=== PATIENT | male | born 1950 | race Caucasian/White ===

== ENCOUNTER 2017-04-13 15:51 | Emergency (ER) | payer OTHER ==
[2017-04-13 15:55] VITALS: BP 110/69; BMI 38.8
--- NOTE | 2017-04-13 16:32 | DR.ABDMALE ---
HPI - Time seen Time seen: 16:20 - PCP Primary Care Physician: VIVIAN CHANCE - HPI comment HPI Comment: KNOWN DIABETIC ITH ACUTE ON CHRONIC ABDOMIAL PAIN WITH NAUSEA . 3 WEEKS HISTORY OF MELENA STOOLS. PATIENT IS GETTING WEAK. NO FEVER OR DYSURIA. - Complaint Chief Complaint Doctors Comments: ABDOMINAL PAIN, GI BLEEDING, WEAKNESS AND HEADACHE. Chief Complaint:: PT. C/O BLEEDING STOMACH ULCER AND SAYS THAT HE HAS BEEN PASSING BLOOD IN HIS STOOL FOR ABOUT 3 WEEKS WHICH HAS WORSENED WITHIN THE PAST WEEK. PT. IS ALSO VERY WEAK. - Reviewed Nurses Notes Review: Yes - Mode of arrival Mode of Arrival: Ambulatory - Timing Onset of Chief Complaint: 03/23/17 Came on: Gradually - Duration Duration: Intermittent Duration: Weeks - Severity Severity: Moderate - Quality Quality: Cramping, Sharp - Context Onset: Gradually History of: Abdominal surgery (CHOLECYSTECTOMY), Urolithiasis - Modifying factors Worsening Factors: Nothing Improving Factors: Nothing - Associated signs and symptoms Associated Signs and Symptoms: Nausea, Melena PMH - PMH Past Medical History: Yes Past Medical History: Alzheimers, Diabetes, Hypertension, Kidney Stones Past Medical History Comment: STOMACH ULCER Past Surgical History: Yes Surgical History: Cholecystectomy, Lithotripsy, Other Past Surgical History Comment: BACK - Family History History of Family Medical Conditions: Yes Family Medical History: Diabetes Mellitus, Cancer, Hypertension - Social History Does patient currently use any type of tobacco product: No Have you used tobacco products in the last 12 months: No Type of Tobacco Use: None Does any household member use tobacco: No Alcohol Use: None Do you use any recreational Drugs:: No Lives With: Spouse Lives Where: Home - infectious screening In the last 2 months have you had wt loss of >10#?: NO Have you had fever, night sweats or hemotysis?: No Have you traveled outside the country in the last 6 months?: No Isolation: Standard ROS - Review of Systems Constitutional: Weakness, Fatigue. negative: Chills, Fever Eyes: No Symptoms Reported ENTM: No Symptoms Reported Respiratoy: No Symptoms Reported. negative: Productive Cough, Short of Breath, Wheezing Cardiovascular: Chest Pain Gastrointestinal/Abdominal: Abdominal Pain, Nausea, Other (GI BLEEDING) Genitourinary: Bleeding. negative: Dysuria, Frequency Neurological: Headache, Weakness, Dizziness Musculoskeletal: Muscle Pain Integumentary: No Symptoms Reported Hematologic/Lymphatic: Easy Bruising Endocrine: No Symptoms Reported All Other Systems: Reviewed and Negative PE - Vital Signs Vital Signs: Temp Pulse Resp BP Pulse Ox 04/13/17 15:52 97.5 F L 74 22 110/69 96 02/26/16 12:10 127/84 - General Limitations: No Limitations General Appearance: Alert - Head Head Exam: Normal Inspection - Eyes Eye exam: Normal Appearance - ENT ENT Exam: Normal External Ear Exam - Neck Neck Exam: Normal Inspection - Chest Chest Inspection: Normal Inspection - Respiratory Respiratory Exam: Normal Lung Sounds Bilat Respiratory Exam: Bilateral Clear to Auscultation - Cardiovascular Cardiovascular Exam: Regular Rate, Normal Rhythm, Irregular Rhythm - Abdominal Exam Abdominal Exam: Normal Bowel Sounds, Soft, Tenderness Abdominal Tenderness: Diffuse, Moderate - Rectal Rectal Exam: Deferred - Back Back Exam: Paraspinal Tenderness - Extremeties Extremities Exam: Normal Inspection. negative: Edema, Calf Tenderness - Exam: Male: Deferred - Neurologic Neurological Exam: Alert, Oriented X3 - Psychiatric Psychiatric Exam: Normal Affect, Normal Mood - Skin Skin Exam: Normal Color MDM - Additional Information Obtained From Additional information provided by: Family - Differential Diagnosis Differential Diagnosis: Bowel Obstruction, Diverticular disease, Esophagitis, Gastritus/PUD, Gastroenteritis, Inflammatory BD, Urinary tract infection, Urolithiasis Course - Treatment Treatment: SEE ORDERS. - Education/Counseling Education/Counseling: Patient, Family, Education Educated On: Treatment, Diagnosis, Needs for Follow Up ROR - Labs Reviewed Laboratory Results Reviewed?: Yes Result Diagrams: 04/13/17 16:45 04/13/17 16:45 Laboratory: WBC 4.4 X10^3/uL (3.6-10.0) 04/13/17 16:45 RBC 4.11 X10^6/uL (4.7-6.0) L 04/13/17 16:45 Hgb 11.7 g/dL (13.5-18.0) L 04/13/17 16:45 Hct 34.5 % (42.0-54.0) L 04/13/17 16:45 MCV 84.0 fL (80.0-100.0) 04/13/17 16:45 MCH 28.4 pg (27.0-34.0) 04/13/17 16:45 MCHC 33.8 g/dL (33.0-35.0) 04/13/17 16:45 RDW 13.2 % (11.6-16.5) 04/13/17 16:45 Plt Count 231 X10^3/uL (150.0-450.0) 04/13/17 16:45 MPV 7.8 fL (7.4-11.0) 04/13/17 16:45 Neut % 74.1 % (42.0-75.0) 04/13/17 16:45 Lymph % 15.0 % (21.0-51.0) L 04/13/17 16:45 [place] % 7.1 % (0.0-13.0) 04/13/17 16:45 Eos % 2.9 % (0.9-2.9) 04/13/17 16:45 Baso % 0.9 % (0.2-1.0) 04/13/17 16:45 Neut # 3.3 x10^3/uL (2.2-4.8) 04/13/17 16:45 Lymph # 0.7 X10^3/uL (1.3-2.9) L 04/13/17 16:45 [place] # 0.3 x10^3/uL (0.3-0.8) 04/13/17 16:45 Eos # 0.1 x10^3/uL (0.0-0.2) 04/13/17 16:45 Baso # 0.0 X10^3/uL (0.0-0.1) 04/13/17 16:45 Absolute Nucleated RBC 0.0 /100WBC 04/13/17 16:45 Sodium 138 mmol/L (136-145) 04/13/17 16:45 Corrected Sodium TNP 04/13/17 16:45 Potassium 3.6 mmol/L (3.5-5.1) 04/13/17 16:45 Chloride 104 mmol/L (98-107) 04/13/17 16:45 Carbon Dioxide 23.9 mmol/L (21-32) 04/13/17 16:45 BUN 18 mg/dL (7-18) 04/13/17 16:45 Creatinine 1.88 mg/dL (0.70-1.30) H 04/13/17 16:45 Est GFR (MDRD) Af Amer 46 (>60) L 04/13/17 16:45 Est GFR (MDRD) Non-Af 38 (>60) L 04/13/17 16:45 Glucose 84 mg/dL (65-99) 04/13/17 16:45 Calcium 8.6 mg/dL (8.5-10.1) 04/13/17 16:45 Corrected Calcium 9.2 mg/dL (8.5-10.1) 04/13/17 16:45 Total Bilirubin 0.60 mg/dL (0.2-1.0) 04/13/17 16:45 AST 44 Units/L (15-37) H 04/13/17 16:45 ALT 29 Units/L (12-78) 04/13/17 16:45 Alkaline Phosphatase 47 Units/L (46-116) 04/13/17 16:45 Total Protein 6.8 g/dL (6.4-8.2) 04/13/17 16:45 Albumin 3.3 g/dL (3.4-5.0) L 04/13/17 16:45 Globulin 3.5 g/dL (2.5-4.5) 04/13/17 16:45 Albumin/Globulin Ratio 0.9 Ratio (1.1-2.1) L 04/13/17 16:45 Amylase 65 Units/L (25-115) 04/13/17 16:45 Lipase 245 Units/L (73-393) 04/13/17 16:45 Stool Description Fob tube 04/13/17 16:48 Stl Occult Blood (IFOB) Negative (NEGATIVE) 04/13/17 16:48 - XRAY XRAY Interpreted by: Radiologist XRAY Findings: REPORT DISCUSS WITH PATIENT AND FAMILY. - Diagnosis Discharge Problem: Abdominal pain Qualifiers: Abdominal location: generalized Qualified Code(s): R10.84 - Generalized abdominal pain GI bleeding Qualifiers: GI bleed type/associated pathology: melena Qualified Code(s): K92.1 - Melena Back pain Qualifiers: Back pain location: low back pain Chronicity: acute Back pain laterality: bilateral Sciatica presence: with sciatica - Discharge Plan Disposition: HOME, SELF-CARE Condition: Stable Prescriptions: Acetaminophen with Codeine [Tylenol/Codeine #3 300-30 mg] 1 tab PO Q6H PRN #15 tab PRN Reason: Pain Gi Cocktail [LEVSIN/Maalox/Lidoc Visc (GI COCKTAIL) *] 30 ml PO QID #240 ml - Follow ups/Referrals Follow ups/Referrals: MANI DELAROSA [Primary Care Provider] - 3 days - Instructions Instructions: Abdominal Pain, Adult, [id number], Gastrointestinal Bleeding, [id number], Back Pain, Adult, [id number] Additional Instructions: RETURN TO ED IF WORSE.
[2017-04-13] MEDS ORDERED: NS 1000 ML 1,000 ML ONE (16:43)
[2017-04-13 16:51] LABS: BASOPHILS % (AUTO) 0.9 % (0.2-1.0); EOSINOPHILS # (AUTO) 0.1 x10^3/uL (0.0-0.2); EOSINOPHILS % (AUTO) 2.9 % (0.9-2.9); HEMATOCRIT 34.5 % (42.0-54.0); HEMOGLOBIN 11.7 g/dL (13.5-18.0); LYMPHOCYTES # (AUTO) 0.7 X10^3/uL (1.3-2.9); MEAN CORPUSCULAR HEMOGLOBIN 28.4 pg (27.0-34.0); MEAN CORPUSCULAR HGB CONC 33.8 g/dL (33.0-35.0); MEAN PLATELET VOLUME 7.8 fL (7.4-11.0); MONOCYTES # (AUTO) 0.3 x10^3/uL (0.3-0.8); MONOCYTES % (AUTO) 7.1 % (0.0-13.0); NEUTROPHILS # (AUTO) 3.3 x10^3/uL (2.2-4.8); NEUTROPHILS % (AUTO) 74.1 % (42.0-75.0); PLATELET COUNT 231 X10^3/uL (150.0-450.0); RED BLOOD COUNT 4.11 X10^6/uL (4.7-6.0); RED CELL DISTRIBUTION WIDTH 13.2 % (11.6-16.5); WHITE BLOOD COUNT 4.4 X10^3/uL (3.6-10.0)
[2017-04-13] MEDS ORDERED: NS 1000 ML 1,000 ML IV SCH (17:00)
[2017-04-13 17:02] LABS: ALANINE AMINOTRANSFERASE 29 Units/L (12-78); ALBUMIN 3.3 g/dL (3.4-5.0); ALKALINE PHOSPHATASE 47 Units/L (46-116); AMYLASE 65 Units/L (25-115); ASPARTATE AMINO TRANSFERASE 44 Units/L (15-37); BLOOD UREA NITROGEN 18 mg/dL (7-18); CALCIUM 8.6 mg/dL (8.5-10.1); CARBON DIOXIDE 23.9 mmol/L (21-32); CHLORIDE 104 mmol/L (98-107); COR CA(FOR HYPOALB) 9.2 mg/dL (8.5-10.1); CREATININE 1.88 mg/dL (0.70-1.30); GLUCOSE 84 mg/dL (65-99); LIPASE 245 Units/L (73-393); SODIUM 138 mmol/L (136-145); TOTAL PROTEIN 6.8 g/dL (6.4-8.2); eGFR BLACK RACES 46 (>60); eGFR NON BLACK RACES 38 (>60)
[2017-04-13] MEDS ORDERED: PEPCID 20 MG IV PREMIX* 20 MG/50 ML BAG IV ONE ×2 (18:11)
[2017-04-13] MEDS ORDERED: LEVSIN/MAALOX/LIDOC VISC PO ONE (18:11)
[2017-04-13] MEDS ORDERED: LEVSIN/MAALOX/LIDOC VISC ONE (18:11)
--- NOTE | 2017-04-13 18:13 | RAD ---
HISTORY: Abdominal pain, bleeding ulcer Study: Acute abdominal series Comparison: Chest radiograph 06/16/2012 Findings: The lungs are clear without consolidation, effusion or pneumothorax. The cardiac and mediastinal co ntours are within normal limits. Flat plate and upright evaluation of the abdomen demonstrates a normal bowel gas pattern. No gross f ree intraperitoneal air. No pathological soft tissue mass or calcification can be observed. There a re postsurgical changes of lumbar spine. Cholecystectomy clips are noted. IMPRESSION: 1. No acute cardiopulmonary disease. 2. No evidence of acute abdominal pathology. Reported By:
== END 2017-04-13 19:49 | disposition home or self-care (01) ==
LOC: ER 16:00
DX: K92.1 Melena (principal); R10.84 Generalized abdominal pain; M54.31 Sciatica, right side; M54.32 Sciatica, left side
CPT/HCPCS: 36415; 74022; 80053; 82150; 82270; 83690; 85025; 96365; 96367; 96374; 99283; A4222; S0028

== ENCOUNTER → 2017-07-30 | Outpatient (CLI) | payer OTHER ==
[2017-07-30 13:13] LABS: BASOPHILS % (AUTO) 0.7 % (0.2-1.0); EOSINOPHILS # (AUTO) 0.1 x10^3/uL (0.0-0.2); EOSINOPHILS % (AUTO) 1.2 % (0.9-2.9); HEMATOCRIT 25.8 % (42.0-54.0); HEMOGLOBIN 8.3 g/dL (13.5-18.0); LYMPHOCYTES # (AUTO) 0.7 X10^3/uL (1.3-2.9); LYMPHOCYTES % (AUTO) 9.2 % (21.0-51.0); MEAN CORPUSCULAR HEMOGLOBIN 23.7 pg (27.0-34.0); MEAN CORPUSCULAR VOLUME 73.8 fL (80.0-100.0); MEAN PLATELET VOLUME 7.6 fL (7.4-11.0); MONOCYTES # (AUTO) 0.6 x10^3/uL (0.3-0.8); MONOCYTES % (AUTO) 8.6 % (0.0-13.0); NEUTROPHILS # (AUTO) 5.9 x10^3/uL (2.2-4.8); NEUTROPHILS % (AUTO) 80.3 % (42.0-75.0); PLATELET COUNT 274 X10^3/uL (150.0-450.0); RED BLOOD COUNT 3.49 X10^6/uL (4.7-6.0); RED CELL DISTRIBUTION WIDTH 16.1 % (11.6-16.5); WHITE BLOOD COUNT 7.3 X10^3/uL (3.6-10.0)
[2017-07-30 14:04] LABS: ANISOCYTOSIS SLIGHT; HYPOCHROMASIA SLIGHT; PLATELET MORPHOLOGY COMMENT NORMAL (NORMAL)
== END ==
LOC: LAB 12:49
PROVIDERS: ATTEND Nurse Practitioner Family
DX: D64.89 Other specified anemias (principal)
CPT/HCPCS: 36415; 85025

== ENCOUNTER 2017-08-03 17:46 | Emergency (ER) | payer OTHER ==
[2017-08-03 17:54] VITALS: BP 112/65; BMI 37.5
[2017-08-03] MEDS ORDERED: NS 1000 ML 1,000 ML IV ONE (18:09)
[2017-08-03] MEDS ORDERED: NS 1000 ML 1,000 ML ONE (18:11)
--- NOTE | 2017-08-03 18:17 | DR.GENAD ---
HPI - PCP Primary Care Physician: stefanie esquivel - Complaint/Symptoms Chief Complaint Doctors Comments: Patient presents for checking of his hemoglobin, he is concerned that he might have anemia. He is being followed by Dr Sahu. Chief Complaint:: pt states" i got dizzy today and i think my blood has dropped it was 8.3 last week" - Source History Provided: Patient - Mode of Arrival Mode of Arrival: Ambulatory - Timing Onset of Chief Complaint: 08/03/17 PMH - PMH Past Medical History: Yes Past Medical History: Alzheimers, Diabetes, GERD, Hypertension, Kidney Stones Past Surgical History: Yes Surgical History: Angioplasty/Stents, Cholecystectomy, Lithotripsy, Other - Family History History of Family Medical Conditions: Yes Family Medical History: Diabetes Mellitus, Cancer, Hypertension - Social History Alcohol Use: None Do you use any recreational Drugs:: No Lives With: Family Lives Where: Home - infectious screening In the last 2 months have you had wt loss of >10#?: NO Have you had fever, night sweats or hemotysis?: No Have you traveled outside the country in the last 6 months?: No Isolation: Standard ROS - Review of Systems Eyes: No Symptoms Reported ENTM: No Symptoms Reported Respiratoy: No Symptoms Reported Cardiovascular: No Symptoms Reported Gastrointestinal/Abdominal: No Symptoms Reported Genitourinary: No Symptoms Reported Neurological: No Symptoms Reported Musculoskeletal: No Symptoms Reported Integumentary: No Symptoms Reported Hematologic/Lymphatic: No Symptoms Reported Endocrine: No Symptoms Reported Psychiatric: No Symptoms Reported All Other Systems: Reviewed and Negative PE - Vital Signs Vitals: Temperature 98.4 F Pulse Rate 102 Respiratory Rate 18 Blood Pressure 112/65 O2 Sat by Pulse Oximetry 100 - General Limitations: No Limitations General Appearance: Alert, In No Apparent Distress - Head Head Exam: Normal Inspection, Atraumatic - Eyes Eye exam: Normal Appearance, PERRL, EOMI - ENT ENT Exam: Normal Exam External Ear Exam: Normal External Inspection TM/Canal Exam: Bilateral Normal Nose Exam: Normal Nose Exam Mouth Exam: Normal Inspection Throat Exam: Normal Inspection - Neck Neck Exam: Normal Inspection - Chest Chest Inspection: Normal Inspection - Respiratory Respiratory Exam: Normal Lung Sounds Bilat Respiratory Exam: Bilateral Clear to Auscultation - Cardiovascular Cardiovascular Exam: Regular Rate, Normal Rhythm - Abdominal Exam Abdominal Exam: Normal Inspection Abdominal Tenderness: negative: RUQ, RLQ, LUQ, LLQ, Epigastrium, Suprapubic, Diffuse, Mild, Moderate, Severe, Other - Extremities Extremities Exam: Normal Inspection - Back Back Exam: Normal Inspection - Neurologic Neurological Exam: Alert, Oriented X3, CN II-XII Intact - Psychiatric Psychiatric Exam: Normal Affect - Skin Skin Exam: Warm, Dry, Intact ROR - Labs Reviewed Laboratory Results Reviewed?: Yes (Reviewed previous renal functions elevated BUN/Cr) Result Diagrams: 08/03/17 18:17 08/03/17 18:17 Laboratory: WBC 4.7 X10^3/uL (3.6-10.0) 08/03/17 18:17 RBC 3.32 X10^6/uL (4.7-6.0) L 08/03/17 18:17 Hgb 8.1 g/dL (13.5-18.0) L 08/03/17 18:17 Hct 24.7 % (42.0-54.0) L 08/03/17 18:17 MCV 74.5 fL (80.0-100.0) L 08/03/17 18:17 MCH 24.5 pg (27.0-34.0) L 08/03/17 18:17 MCHC 32.8 g/dL (33.0-35.0) L 08/03/17 18:17 RDW 16.6 % (11.6-16.5) H 08/03/17 18:17 Plt Count 267 X10^3/uL (150.0-450.0) 08/03/17 18:17 Plt Count Comment Adequate (ADEQUATE) 08/03/17 18:17 MPV 7.6 fL (7.4-11.0) 08/03/17 18:17 Neut % 77.8 % (42.0-75.0) H 08/03/17 18:17 Lymph % 10.6 % (21.0-51.0) L 08/03/17 18:17 [place] % 9.0 % (0.0-13.0) 08/03/17 18:17 Eos % 1.9 % (0.9-2.9) 08/03/17 18:17 Baso % 0.7 % (0.2-1.0) 08/03/17 18:17 Neut # 3.6 x10^3/uL (2.2-4.8) 08/03/17 18:17 Lymph # 0.5 X10^3/uL (1.3-2.9) L 08/03/17 18:17 Worth # 0.4 x10^3/uL (0.3-0.8) 08/03/17 18:17 Eos # 0.1 x10^3/uL (0.0-0.2) 08/03/17 18:17 Baso # 0.0 X10^3/uL (0.0-0.1) 08/03/17 18:17 Absolute Nucleated RBC 0.0 /100WBC 08/03/17 18:17 Plt Morphology Comment Normal (NORMAL) 08/03/17 18:17 RBC Morphology Abnormal (NORMAL) 08/03/17 18:17 Hypochromasia Slight A 08/03/17 18:17 Poikilocytosis Slight A 08/03/17 18:17 Anisocytosis Slight A 08/03/17 18:17 Microcytosis Slight A 08/03/17 18:17 Sodium 138 mmol/L (136-145) 08/03/17 18:17 Corrected Sodium 140 mmol/L (136-145) 08/03/17 18:17 Potassium 4.3 mmol/L (3.5-5.1) 08/03/17 18:17 Chloride 104 mmol/L (98-107) 08/03/17 18:17 Carbon Dioxide 24.5 mmol/L (21-32) 08/03/17 18:17 BUN 35 mg/dL (7-18) H 08/03/17 18:17 Creatinine 2.29 mg/dL (0.70-1.30) H 08/03/17 18:17 Est GFR (MDRD) Af Amer 37 (>60) L 08/03/17 18:17 Est GFR (MDRD) Non-Af 31 (>60) L 08/03/17 18:17 Glucose 165 mg/dL (65-99) H 08/03/17 18:17 Calcium 8.4 mg/dL (8.5-10.1) L 08/03/17 18:17 - Diagnosis Discharge Problem: Dehydration, mild, Prerenal azotemia - Discharge Plan Condition: Stable - Follow ups/Referrals Follow ups/Referrals: STEFANIE ESQUIVEL [Primary Care Provider] - 3 days - Instructions
[2017-08-03 18:23] LABS: BASOPHILS % (AUTO) 0.7 % (0.2-1.0); EOSINOPHILS # (AUTO) 0.1 x10^3/uL (0.0-0.2); EOSINOPHILS % (AUTO) 1.9 % (0.9-2.9); HEMATOCRIT 24.7 % (42.0-54.0); HEMOGLOBIN 8.1 g/dL (13.5-18.0); LYMPHOCYTES # (AUTO) 0.5 X10^3/uL (1.3-2.9); LYMPHOCYTES % (AUTO) 10.6 % (21.0-51.0); MEAN CORPUSCULAR HEMOGLOBIN 24.5 pg (27.0-34.0); MEAN CORPUSCULAR HGB CONC 32.8 g/dL (33.0-35.0); MEAN CORPUSCULAR VOLUME 74.5 fL (80.0-100.0); MEAN PLATELET VOLUME 7.6 fL (7.4-11.0); MONOCYTES # (AUTO) 0.4 x10^3/uL (0.3-0.8); NEUTROPHILS # (AUTO) 3.6 x10^3/uL (2.2-4.8); NEUTROPHILS % (AUTO) 77.8 % (42.0-75.0); PLATELET COUNT 267 X10^3/uL (150.0-450.0); RED BLOOD COUNT 3.32 X10^6/uL (4.7-6.0); RED CELL DISTRIBUTION WIDTH 16.6 % (11.6-16.5); WHITE BLOOD COUNT 4.7 X10^3/uL (3.6-10.0)
[2017-08-03 18:32] LABS: CALCIUM 8.4 mg/dL (8.5-10.1); CARBON DIOXIDE 24.5 mmol/L (21-32); CREATININE 2.29 mg/dL (0.70-1.30)
[2017-08-03 18:41] LABS: PLATELET MORPHOLOGY COMMENT NORMAL (NORMAL)
[2017-08-03 18:42] LABS: ANISOCYTOSIS SLIGHT; HYPOCHROMASIA SLIGHT; MICROCYTOSIS SLIGHT; POIKILOCYTOSIS SLIGHT
== END 2017-08-03 19:55 | disposition home or self-care (01) ==
LOC: ER 17:55
DX: E86.0 Dehydration (principal); R79.89 Other specified abnormal findings of blood chemistry
CPT/HCPCS: 36415; 80048; 85025; 96365; 99282; 99283; A4222

== ENCOUNTER → 2017-08-05 | Outpatient (CLI) | payer OTHER ==
[2017-08-03 17:54] VITALS: BP 112/65
[2017-08-05 14:16] LABS: BASOPHILS % (AUTO) 0.8 % (0.2-1.0); EOSINOPHILS # (AUTO) 0.1 x10^3/uL (0.0-0.2); EOSINOPHILS % (AUTO) 2.8 % (0.9-2.9); HEMATOCRIT 24.8 % (42.0-54.0); HEMOGLOBIN 7.9 g/dL (13.5-18.0); LYMPHOCYTES # (AUTO) 0.6 X10^3/uL (1.3-2.9); LYMPHOCYTES % (AUTO) 11.6 % (21.0-51.0); MEAN CORPUSCULAR HEMOGLOBIN 24.2 pg (27.0-34.0); MEAN CORPUSCULAR VOLUME 75.5 fL (80.0-100.0); MEAN PLATELET VOLUME 7.7 fL (7.4-11.0); MONOCYTES # (AUTO) 0.4 x10^3/uL (0.3-0.8); MONOCYTES % (AUTO) 9.2 % (0.0-13.0); NEUTROPHILS # (AUTO) 3.7 x10^3/uL (2.2-4.8); NEUTROPHILS % (AUTO) 75.6 % (42.0-75.0); PLATELET COUNT 241 X10^3/uL (150.0-450.0); RED BLOOD COUNT 3.29 X10^6/uL (4.7-6.0); RED CELL DISTRIBUTION WIDTH 16.8 % (11.6-16.5); WHITE BLOOD COUNT 4.9 X10^3/uL (3.6-10.0)
[2017-08-05 14:25] LABS: ANISOCYTOSIS SLIGHT; HYPOCHROMASIA SLIGHT; PLATELET MORPHOLOGY COMMENT NORMAL (NORMAL)
== END | disposition home or self-care (01) | DRG 812 ==
LOC: LAB 13:46
PROVIDERS: ATTEND Nurse Practitioner Family
DX: D64.89 Other specified anemias (principal); L03.818 Cellulitis of other sites; B02.9 Zoster without complications
CPT/HCPCS: 36415; 85025; 87070; 87075; 87077; 87186

== ENCOUNTER → 2017-08-06 | Outpatient (CLI) | payer OTHER ==
[2017-08-03 17:54] VITALS: BP 112/65
[~2017-08-06] MED LIST: NS 500 ML IV 0 ML IV ONE; NS 500 ML IV 500 ML IV ONE
[2017-08-06 11:34] LABS: HEMATOCRIT 25.2 % (42.0-54.0); HEMOGLOBIN 8.1 g/dL (13.5-18.0)
== END ==
LOC: LAB 10:50
PROVIDERS: ATTEND Nurse Practitioner Family
DX: D64.89 Other specified anemias (principal)
CPT/HCPCS: 36415; 85014; 85018; A4222

== ENCOUNTER → 2017-08-13 | Outpatient (CLI) | payer OTHER ==
[2017-08-06 14:38] VITALS: BP 107/57
[2017-08-13 12:41] LABS: BASOPHILS % (AUTO) 0.7 % (0.2-1.0); EOSINOPHILS # (AUTO) 0.1 x10^3/uL (0.0-0.2); EOSINOPHILS % (AUTO) 2.6 % (0.9-2.9); HEMATOCRIT 31.1 % (42.0-54.0); LYMPHOCYTES # (AUTO) 0.6 X10^3/uL (1.3-2.9); LYMPHOCYTES % (AUTO) 12.2 % (21.0-51.0); MEAN CORPUSCULAR HEMOGLOBIN 25.3 pg (27.0-34.0); MEAN PLATELET VOLUME 7.7 fL (7.4-11.0); MONOCYTES # (AUTO) 0.4 x10^3/uL (0.3-0.8); MONOCYTES % (AUTO) 8.1 % (0.0-13.0); NEUTROPHILS # (AUTO) 3.6 x10^3/uL (2.2-4.8); NEUTROPHILS % (AUTO) 76.4 % (42.0-75.0); PLATELET COUNT 243 X10^3/uL (150.0-450.0); RED BLOOD COUNT 3.94 X10^6/uL (4.7-6.0); RED CELL DISTRIBUTION WIDTH 23.9 % (11.6-16.5); WHITE BLOOD COUNT 4.8 X10^3/uL (3.6-10.0)
[2017-08-13 13:01] LABS: ANISOCYTOSIS 2+; PLATELET MORPHOLOGY COMMENT NORMAL (NORMAL)
== END ==
LOC: LAB 12:06
DX: D64.89 Other specified anemias (principal)
CPT/HCPCS: 36415; 85025

== ENCOUNTER 2017-08-27 09:23 | Day surgery (SDC) | payer OTHER ==
[2017-08-27] MEDS ORDERED: D5 LR 1000 ML 1,000 ML IV ONE (09:36)
[2017-08-27] MEDS ORDERED: DIPRIVAN VIAL 20 ML ONE (11:20)
[2017-08-27] MEDS ORDERED: ROBINUL ONE (11:26)
[2017-08-27] MEDS ORDERED: EPHEDRINE SULFATE INJ ONE (11:27)
[2017-08-27 12:22] VITALS: BP 102/60
== END 2017-08-27 12:07 | disposition home or self-care (01) ==
LOC: SURG1 09:23
PROVIDERS: ATTEND Internal Medicine Gastroenterology
PROC: 0DBM8ZX Excision of Descending Colon, Via Natural or Artificial Opening Endoscopic, Diagnostic (ICD-10-PCS; principal; 2017-08-27 12:45)
PROC: 0DBK8ZX Excision of Ascending Colon, Via Natural or Artificial Opening Endoscopic, Diagnostic (ICD-10-PCS; principal; 2017-08-27 12:45)
PROC: 0DJD8ZZ Inspection of Lower Intestinal Tract, Via Natural or Artificial Opening Endoscopic (ICD-10-PCS; principal; 2017-08-27 12:45)
PROC: 0DBH8ZX Excision of Cecum, Via Natural or Artificial Opening Endoscopic, Diagnostic (ICD-10-PCS; principal; 2017-08-27 12:45)
DX: Z12.11 Encounter for screening for malignant neoplasm of colon (principal); D50.8 Other iron deficiency anemias; R19.4 Change in bowel habit; K57.30 Diverticulosis of large intestine without perforation or abscess without bleeding; K64.0 First degree hemorrhoids; K63.5 Polyp of colon; D12.0 Benign neoplasm of cecum; D12.2 Benign neoplasm of ascending colon; D12.4 Benign neoplasm of descending colon
CPT/HCPCS: A4217; J3490; J7120

== ENCOUNTER 2017-09-24 09:05 | Day surgery (SDC) | payer OTHER ==
[2017-09-24] MEDS ORDERED: D5 LR 1000 ML 1,000 ML IV ONE (09:14)
[2017-09-24 09:44] LABS: BASOPHILS # (AUTO) 0.1 X10^3/uL (0.0-0.1); BASOPHILS % (AUTO) 0.7 % (0.2-1.0); EOSINOPHILS # (AUTO) 0.1 x10^3/uL (0.0-0.2); EOSINOPHILS % (AUTO) 1.1 % (0.9-2.9); HEMATOCRIT 32.7 % (42.0-54.0); LYMPHOCYTES # (AUTO) 0.8 X10^3/uL (1.3-2.9); LYMPHOCYTES % (AUTO) 10.7 % (21.0-51.0); MEAN CORPUSCULAR HEMOGLOBIN 26.8 pg (27.0-34.0); MEAN CORPUSCULAR HGB CONC 33.3 g/dL (33.0-35.0); MEAN CORPUSCULAR VOLUME 80.3 fL (80.0-100.0); MEAN PLATELET VOLUME 7.8 fL (7.4-11.0); MONOCYTES # (AUTO) 0.6 x10^3/uL (0.3-0.8); MONOCYTES % (AUTO) 7.9 % (0.0-13.0); NEUTROPHILS # (AUTO) 6.1 x10^3/uL (2.2-4.8); NEUTROPHILS % (AUTO) 79.6 % (42.0-75.0); PLATELET COUNT 257 X10^3/uL (150.0-450.0); RED BLOOD COUNT 4.07 X10^6/uL (4.7-6.0); RED CELL DISTRIBUTION WIDTH 19.5 % (11.6-16.5); WHITE BLOOD COUNT 7.6 X10^3/uL (3.6-10.0)
[2017-09-24 09:46] LABS: HEMOGLOBIN 10.9 g/dL (13.5-18.0)
[2017-09-24] MEDS ORDERED: DIPRIVAN VIAL 20 ML ONE (10:02)
[2017-09-24 11:35] VITALS: BP 112/52
== END 2017-09-24 10:45 | disposition home or self-care (01) ==
LOC: SURG1 09:05
PROVIDERS: ATTEND Internal Medicine Gastroenterology
PROC: 0DB68ZX Excision of Stomach, Via Natural or Artificial Opening Endoscopic, Diagnostic (ICD-10-PCS; principal; 2017-09-24 08:15)
PROC: 0DB88ZX Excision of Small Intestine, Via Natural or Artificial Opening Endoscopic, Diagnostic (ICD-10-PCS; principal; 2017-09-24 08:15)
PROC: 0DJ08ZZ Inspection of Upper Intestinal Tract, Via Natural or Artificial Opening Endoscopic (ICD-10-PCS; principal; 2017-09-24 08:15)
DX: D50.8 Other iron deficiency anemias (principal); R71.0 Precipitous drop in hematocrit; R10.13 Epigastric pain; K21.9 Gastro-esophageal reflux disease without esophagitis; K25.9 Gastric ulcer, unspecified as acute or chronic, without hemorrhage or perforation; K31.89 Other diseases of stomach and duodenum; K29.60 Other gastritis without bleeding; K20.8 Other esophagitis
CPT/HCPCS: 36415; 82947; 85025; A4217; J3490; J7120

== ENCOUNTER 2017-09-25 07:28 | Emergency (ER) | payer OTHER ==
[2017-09-25] MEDS ORDERED: D50W ABBOJECT SYR IV ONE (07:37)
[2017-09-25] MEDS ORDERED: D50W ABBOJECT SYR ONE (07:43)
--- NOTE | 2017-09-25 07:51 | DR.GENAD ---
HPI - Complaint/Symptoms Chief Complaint Doctors Comments: Patient presented to the ED via EMS because of AMS. He began to talk in a repetative manner of any single "catch" word" that you mention. If you say his blood sugar is low, he repeats that sentence or phrase repetatively. He has history of trauma or recent infection. His blood glucose is 44mg/dl. He was given D50. Patient is very restless. <KEARA WEBBER - Last Filed: 09/25/17 08:06> PMH - PMH Past Medical History: Alzheimers, Diabetes, GERD, Hypertension, Kidney Stones Past Surgical History: Yes Surgical History: Angioplasty/Stents, Cholecystectomy, Lithotripsy, Other - Family History Family Medical History: Diabetes Mellitus, Cancer, Hypertension - Social History Do you use any recreational Drugs:: No <KEARA WEBBER - Last Filed: 09/25/17 08:06> ROS - Review of Systems Eyes: No Symptoms Reported ENTM: No Symptoms Reported Respiratoy: No Symptoms Reported Cardiovascular: No Symptoms Reported. negative: Chest Pain Gastrointestinal/Abdominal: No Symptoms Reported Genitourinary: No Symptoms Reported Neurological: Other (hyper excitable) Musculoskeletal: negative: No Symptoms Reported, See HPI, Back Pain, Gout, Joint Pain, Joint Swelling, Muscle Pain, Muscle Stiffness, Neck Pain, Right, Left, Neck, Chest wall, Rib(s), Back, Shoulder, Arm, Elbow, Forearm, Wrist, Hand , Pelvis, Hip, Leg, Knee, Ankle, Foot, Other Integumentary: No Symptoms Reported Hematologic/Lymphatic: No Symptoms Reported Endocrine: No Symptoms Reported Psychiatric: No Symptoms Reported All Other Systems: Reviewed and Negative <AKBARSARAH - Last Filed: 09/25/17 08:06> PE - General Limitations: Altered Mental Status General Appearance: Anxious - Head Head Exam: Normal Inspection, Atraumatic - Eyes Eye exam: Normal Appearance, PERRL, EOMI - ENT ENT Exam: Normal Exam External Ear Exam: Normal External Inspection TM/Canal Exam: Bilateral Normal Nose Exam: Normal Nose Exam Mouth Exam: Normal Inspection Throat Exam: Normal Inspection - Neck Neck Exam: Normal Inspection, Full ROM - Chest Chest Inspection: Normal Inspection - Respiratory Respiratory Exam: Normal Lung Sounds Bilat Respiratory Exam: Bilateral Clear to Auscultation - Cardiovascular Cardiovascular Exam: Regular Rate, Normal Rhythm - Abdominal Exam Abdominal Exam: Normal Inspection, Normal Bowel Sounds Abdominal Tenderness: negative: RUQ, RLQ, LUQ, LLQ, Epigastrium, Suprapubic, Diffuse, Mild, Moderate, Severe, Other - Extremities Extremities Exam: Normal Inspection, Full ROM - Back Back Exam: Normal Inspection, Full ROM - Neurologic Neurological Exam: Alert, CN II-XII Intact - Psychiatric Psychiatric Exam: Agitated, Anxious <KEARA WEBBER - Last Filed: 09/25/17 08:06> - Vital Signs Vitals: Pulse Rate [Apical] 53 Pulse Rate 62 Respiratory Rate 20 Blood Pressure [Right Arm] 128/61 Blood Pressure 104/55 O2 Sat by Pulse Oximetry 100 MDM - Additional Information Additional Information Obtained From: Family - Differential Diagnosis Differential Diagnosis: HYPOGLYCEMIA, SYNCOPAL EPISODE, AMS <HALLE HILL - Last Filed: 09/27/17 08:35> Course - Treatment Treatment: SEE ORDERS. - Education/Counseling Education/Counseling: Patient, Education Educated On: Diagnosis, Needs for Follow Up <HALLE HILL - Last Filed: 09/27/17 08:35> ROR - Labs Reviewed Laboratory Results Reviewed?: Yes Result Diagrams: 09/25/17 07:50 09/25/17 07:50 - XRAY XRAY Findings: REPORT DISCUSS WITH PATIENT AND HIS FAMILY. - EKG Rhythm: NSR (EKG NOTED) <HALLE HILL - Last Filed: 09/27/17 08:35> - Labs Reviewed Laboratory: WBC 6.0 X10^3/uL (3.6-10.0) 09/25/17 07:50 RBC 3.79 X10^6/uL (4.7-6.0) L 09/25/17 07:50 Hgb 10.2 g/dL (13.5-18.0) L 09/25/17 07:50 Hct 30.8 % (42.0-54.0) L 09/25/17 07:50 MCV 81.4 fL (80.0-100.0) 09/25/17 07:50 MCH 26.9 pg (27.0-34.0) L 09/25/17 07:50 MCHC 33.0 g/dL (33.0-35.0) 09/25/17 07:50 RDW 19.9 % (11.6-16.5) H 09/25/17 07:50 Plt Count 245 X10^3/uL (150.0-450.0) 09/25/17 07:50 MPV 8.0 fL (7.4-11.0) 09/25/17 07:50 Neut % 77.1 % (42.0-75.0) H 09/25/17 07:50 Lymph % 10.3 % (21.0-51.0) L 09/25/17 07:50 [place] % 8.8 % (0.0-13.0) 09/25/17 07:50 Eos % 3.0 % (0.9-2.9) H 09/25/17 07:50 Baso % 0.8 % (0.2-1.0) 09/25/17 07:50 Neut # 4.6 x10^3/uL (2.2-4.8) 09/25/17 07:50 Lymph # 0.6 X10^3/uL (1.3-2.9) L 09/25/17 07:50 [place] # 0.5 x10^3/uL (0.3-0.8) 09/25/17 07:50 Eos # 0.2 x10^3/uL (0.0-0.2) 09/25/17 07:50 Baso # 0.0 X10^3/uL (0.0-0.1) 09/25/17 07:50 Absolute Nucleated RBC 0.0 /100WBC 09/25/17 07:50 INR Target Range - 09/25/17 07:50 INR 2.92 (0.8-1.3) H 09/25/17 07:50 PTT 43.3 SECONDS (22.9-36.5) H 09/25/17 07:50 PTT Comment - 09/25/17 07:50 Sodium 139 mmol/L (136-145) 09/25/17 07:50 Corrected Sodium TNP 09/25/17 07:50 Potassium 3.3 mmol/L (3.5-5.1) L 09/25/17 07:50 Chloride 103 mmol/L (98-107) 09/25/17 07:50 Carbon Dioxide 26.0 mmol/L (21-32) 09/25/17 07:50 BUN 16 mg/dL (7-18) 09/25/17 07:50 Creatinine 1.91 mg/dL (0.70-1.30) H 09/25/17 07:50 Est GFR (MDRD) Af Amer 46 (>60) L 09/25/17 07:50 Est GFR (MDRD) Non-Af 38 (>60) L 09/25/17 07:50 Glucose 44 mg/dL (65-99) L* 09/25/17 07:50 POC Glucose (mg/dL) 108 mg/dL (65-99) H 09/25/17 09:20 Calcium 8.2 mg/dL (8.5-10.1) L 09/25/17 07:50 Corrected Calcium 9.0 mg/dL (8.5-10.1) 09/25/17 07:50 Magnesium 1.8 mg/dL (1.7-2.9) 09/25/17 07:50 Total Bilirubin 0.90 mg/dL (0.2-1.0) 09/25/17 07:50 AST 32 Units/L (15-37) 09/25/17 07:50 ALT 6 Units/L (12-78) L 09/25/17 07:50 Alkaline Phosphatase 64 Units/L (46-116) 09/25/17 07:50 Ammonia 19 umol/L (11-32) 09/25/17 08:35 Creatine Kinase 20 Units/L (39-308) L 09/25/17 07:50 CK-MB (CK-2) < 1.0 ng/mL (0-4.0) 09/25/17 07:50 CK/CKMB % Calc 5.0 % (<4) 09/25/17 07:50 Troponin I < 0.02 ng/mL (0-1.5) 09/25/17 07:50 Total Protein 7.0 g/dL (6.4-8.2) 09/25/17 07:50 Albumin 3.0 g/dL (3.4-5.0) L 09/25/17 07:50 Globulin 4.0 g/dL (2.5-4.5) 09/25/17 07:50 Albumin/Globulin Ratio 0.8 Ratio (1.1-2.1) L 09/25/17 07:50 TSH 3rd Generation 1.475 uIU/mL (0.358-3.74) 09/25/17 07:50 Specimen Type Clean catch urine 09/25/17 08:32 Urine Color Yellow (YELLOW) 09/25/17 08:32 Urine Appearance Clear (CLEAR) 09/25/17 08:32 Urine pH 6.0 (5.0 - 8.0) 09/25/17 08:32 Ur Specific [place] 1.015 (1.000-1.030) 09/25/17 08:32 Urine Protein 1+ (NEGATIVE) 09/25/17 08:32 Urine Glucose (UA) Negative (NEGATIVE) 09/25/17 08:32 Urine Ketones Negative (NEGATIVE) 09/25/17 08:32 Urine Occult Blood 1+ (NEGATIVE) 09/25/17 08:32 Urine Nitrite Negative (NEGATIVE) 09/25/17 08:32 Urine Bilirubin Negative (NEGATIVE) 09/25/17 08:32 Urine Urobilinogen Normal (NORMAL) 09/25/17 08:32 Ur Leukocyte Esterase Negative (NEGATIVE) 09/25/17 08:32 Urine RBC None seen /HPF (NEGATIVE) 09/25/17 08:32 Urine WBC None seen /HPF (NEGATIVE) 09/25/17 08:32 Ur Squamous Epith Cells Rare /HPF (NEGATIVE) 09/25/17 08:32 Urine Bacteria Negative /HPF (NEGATIVE) 09/25/17 08:32 Ur Culture Indicated? No/not indicated 09/25/17 08:32 Urine Opiates Screen Negative (NEG=<300) 09/25/17 08:32 Urine Methadone Screen Negative (NEG=<300) 09/25/17 08:32 Ur Barbiturates Screen Negative (NEG=<200) 09/25/17 08:32 Ur Phencyclidine Scrn Negative (NEG=<25) 09/25/17 08:32 Ur Amphetamines Screen Negative (NEG=<1000) 09/25/17 08:32 U Benzodiazepines Scrn Negative (NEG=<200) 09/25/17 08:32 Urine Cocaine Screen Negative (NEG=<300) 09/25/17 08:32 U Marijuana (THC) Screen Negative (NEG=<50) 09/25/17 08:32 <KEARA WEBBER - Last Filed: 09/25/17 08:06> <HALLE HILL - Last Filed: 09/27/17 08:35> - Diagnosis Discharge Problem: Hypoglycemia Episode of syncope Qualifiers: Syncope type: unspecified Qualified Code(s): R55 - Syncope and collapse - Discharge Plan Disposition: 01 HOME, SELF-CARE Condition: Stable - Follow ups/Referrals Follow ups/Referrals: MANI DELAROSA [Primary Care Provider] - 3 days - Instructions Instructions: Hypoglycemia, Inaw-iu-Wedc Additional Instructions: RETURN TO ED IF WORSE.
[2017-09-25 07:53] VITALS: BMI 39.1
[2017-09-25 08:08] LABS: BASOPHILS % (AUTO) 0.8 % (0.2-1.0); EOSINOPHILS # (AUTO) 0.2 x10^3/uL (0.0-0.2); HEMATOCRIT 30.8 % (42.0-54.0); HEMOGLOBIN 10.2 g/dL (13.5-18.0); LYMPHOCYTES # (AUTO) 0.6 X10^3/uL (1.3-2.9); LYMPHOCYTES % (AUTO) 10.3 % (21.0-51.0); MEAN CORPUSCULAR HEMOGLOBIN 26.9 pg (27.0-34.0); MEAN CORPUSCULAR VOLUME 81.4 fL (80.0-100.0); MONOCYTES # (AUTO) 0.5 x10^3/uL (0.3-0.8); MONOCYTES % (AUTO) 8.8 % (0.0-13.0); NEUTROPHILS # (AUTO) 4.6 x10^3/uL (2.2-4.8); NEUTROPHILS % (AUTO) 77.1 % (42.0-75.0); PLATELET COUNT 245 X10^3/uL (150.0-450.0); RED BLOOD COUNT 3.79 X10^6/uL (4.7-6.0); RED CELL DISTRIBUTION WIDTH 19.9 % (11.6-16.5)
--- NOTE | 2017-09-25 08:13 | CT ---
History: Altered mental status Study: CT head without contrast. Sagittal and coronal reformations were provided. Comparison: None Findings: The ventricles and sulci are prominent without mass effect. There is no intracranial hemorr jakob or mass or edema or subdural collection of fluid. There is moderate diffuse patchy periventricul ar white matter low attenuation. The calvarium is intact. The paranasal sinuses are grossly clear. Impression: No acute intracranial disease. Moderate periventricular white-matter small-vessel disease. Reported By:
[2017-09-25 08:25] LABS: ALANINE AMINOTRANSFERASE 6 Units/L (12-78); ALKALINE PHOSPHATASE 64 Units/L (46-116); ASPARTATE AMINO TRANSFERASE 32 Units/L (15-37); BLOOD UREA NITROGEN 16 mg/dL (7-18); CALCIUM 8.2 mg/dL (8.5-10.1); CHLORIDE 103 mmol/L (98-107); CREATINE KINASE 20 Units/L (39-308); CREATINE KINASE MB < 1.0 ng/mL (0-4.0); CREATININE 1.91 mg/dL (0.70-1.30); MAGNESIUM 1.8 mg/dL (1.7-2.9); SODIUM 139 mmol/L (136-145); TROPONIN I < 0.02 ng/mL (0-1.5); TSH (3RD GENERATION) 1.475 uIU/mL (0.358-3.74); eGFR BLACK RACES 46 (>60); eGFR NON BLACK RACES 38 (>60)
[2017-09-25 09:18] LABS: BILIRUBIN,URINE NEGATIVE (NEGATIVE); BLOOD/HEMOGLOBIN,URINE 1+ (NEGATIVE); GLUCOSE, URINE NEGATIVE (NEGATIVE); KETONES,URINE NEGATIVE (NEGATIVE); LEUKOCYTE ESTERASE ,URINE NEGATIVE (NEGATIVE); NITRITES,URINE NEGATIVE (NEGATIVE); PROTEIN,URINE 1+ (NEGATIVE); UROBILINOGEN,URINE NORMAL (NORMAL)
[2017-09-25 09:20] LABS: APPEARANCE,URINE CLEAR (CLEAR); COLOR,URINE YELLOW (YELLOW); RBC,URINE NONE SEEN /HPF (NEGATIVE)
[2017-09-25 09:21] LABS: BACTERIA,URINE NEGATIVE /HPF (NEGATIVE); SQUAMOUS EPITHELIAL CELL,UR RARE /HPF (NEGATIVE)
[2017-09-25 10:25] VITALS: BP 128/61
== END 2017-09-25 10:47 | disposition home or self-care (01) ==
LOC: ER 07:34
DX: E16.2 Hypoglycemia, unspecified (principal); R55 Syncope and collapse
CPT/HCPCS: 36415; 70450; 80053; 80307; 81001; 82140; 82550; 82553; 83735; 84443; 84484; 85025; 85610; 85730; 93005; 93010; 96365; 96374; 99283; 99285; A4222; G0434; J3490

== ENCOUNTER → 2017-10-06 | Outpatient (CLI) | payer OTHER ==
[2017-09-25 10:25] VITALS: BP 128/61
[2017-10-06 13:37] LABS: BASOPHILS % (AUTO) 1.2 % (0.2-1.0); EOSINOPHILS # (AUTO) 0.1 x10^3/uL (0.0-0.2); HEMOGLOBIN 8.6 g/dL (13.5-18.0); LYMPHOCYTES # (AUTO) 0.6 X10^3/uL (1.3-2.9); LYMPHOCYTES % (AUTO) 16.1 % (21.0-51.0); MEAN CORPUSCULAR HEMOGLOBIN 26.7 pg (27.0-34.0); MEAN CORPUSCULAR HGB CONC 33.1 g/dL (33.0-35.0); MEAN CORPUSCULAR VOLUME 80.5 fL (80.0-100.0); MEAN PLATELET VOLUME 8.1 fL (7.4-11.0); MONOCYTES # (AUTO) 0.3 x10^3/uL (0.3-0.8); MONOCYTES % (AUTO) 9.1 % (0.0-13.0); NEUTROPHILS # (AUTO) 2.6 x10^3/uL (2.2-4.8); NEUTROPHILS % (AUTO) 70.6 % (42.0-75.0); PLATELET COUNT 195 X10^3/uL (150.0-450.0); RED BLOOD COUNT 3.22 X10^6/uL (4.7-6.0); RED CELL DISTRIBUTION WIDTH 18.6 % (11.6-16.5); WHITE BLOOD COUNT 3.6 X10^3/uL (3.6-10.0)
== END ==
LOC: LAB 12:58
PROVIDERS: ATTEND Internal Medicine Gastroenterology
DX: D64.89 Other specified anemias (principal)
CPT/HCPCS: 36415; 85025

== ENCOUNTER 2017-10-21 15:00 | Emergency (ER) | payer OTHER ==
[2017-10-21 15:07] VITALS: BP 123/56; BMI 37.5
--- NOTE | 2017-10-21 16:16 | DR.GENAD ---
HPI - PCP Primary Care Physician: juan - HPI Comment HPI Comment: WORSE TODAY. NO FEVER. FEELS WEAK. HISTORY ANEMIA. DENIES BLEEDING. - Complaint/Symptoms Chief Complaint Doctors Comments: FELL, INCREASING PAIN ABDOMEN AND CHEST TIMES 5 DAYS. REDNESS LOWER ABDOMINAL WALL WITH DRAINAGE TIMES 2 DAYS Chief Complaint:: patient stated he fell at home 5 days ago and landed on his left side. having left sided rib pain and lower abd pain. - Nurses notes reviewed Nurses Notes Review: Yes - Source History Provided: Patient - Mode of Arrival Mode of Arrival: Ambulatory - Timing Onset of Chief Complaint: 10/17/17 Came on: Suddenly - Duration Duration: Constant Duration: Days - Severity Severity: Moderate PMH - PMH Past Medical History: Yes Past Medical History: Alzheimers, Diabetes, GERD, Hypertension, Kidney Stones Past Surgical History: Yes Surgical History: Angioplasty/Stents, Cholecystectomy, Lithotripsy, Other - Family History History of Family Medical Conditions: Yes Family Medical History: Diabetes Mellitus, Cancer, Hypertension - Social History Does patient currently use any type of tobacco product: No Have you used tobacco products in the last 12 months: No Type of Tobacco Use: None Does any household member use tobacco: Yes Alcohol Use: None Do you use any recreational Drugs:: No Lives With: Family Lives Where: Home - infectious screening In the last 2 months have you had wt loss of >10#?: NO Have you had fever, night sweats or hemotysis?: No Have you traveled outside the country in the last 6 months?: No Isolation: Standard ROS - Review of Systems Constitutional: Weakness, Fatigue. negative: Chills, Fever Eyes: No Symptoms Reported ENTM: negative: Ear Pain, Nose Discharge, Nose Congestion, Throat Pain Respiratoy: Non-Productive Cough, Short of Breath (ON EXERTION.) Cardiovascular: Chest Pain (LOWER LEFT CHEST.) Gastrointestinal/Abdominal: Abdominal Pain, Nausea. negative: Vomiting Genitourinary: No Symptoms Reported Neurological: Weakness. negative: Headache, Dizziness Musculoskeletal: Muscle Pain Integumentary: Change in Color, Wound (LOWER ABDOMINAL WALL.) Hematologic/Lymphatic: Anemia, Easy Bleeding Endocrine: No Symptoms Reported. negative: Flushing All Other Systems: Reviewed and Negative PE - Vital Signs Vitals: Temperature 98.8 F Pulse Rate 55 Respiratory Rate 18 Blood Pressure [Right Arm] 128/61 Blood Pressure 123/56 O2 Sat by Pulse Oximetry 98 - General Limitations: No Limitations General Appearance: Alert - Head Head Exam: Normal Inspection - Eyes Eye exam: Normal Appearance, PERRL, EOMI. negative: Scleral Icterus, Conjunctival Injection - ENT ENT Exam: Normal External Ear Exam External Ear Exam: Normal External Inspection TM/Canal Exam: Bilateral Normal Nose Exam: Normal Nose Exam Mouth Exam: Normal Inspection Throat Exam: Tonsillar Erythema - Neck Neck Exam: Normal Inspection - Chest Chest Inspection: Symmetric Chest Wall Rise - Respiratory Respiratory Exam: Respiratory Distress Respiratory Exam: Bilateral Rhonchi, Upper Rhonchi, Lower Rhonchi - Cardiovascular Cardiovascular Exam: Regular Rate, Normal Rhythm, Normal Heart Sounds - Abdominal Exam Abdominal Exam: Normal Bowel Sounds, Soft, Tenderness Abdominal Tenderness: Diffuse, Moderate - Extremities Extremities Exam: Normal Inspection - Back Back Exam: Paraspinal Tenderness - Neurologic Neurological Exam: Alert, Oriented X3 - Skin Skin Exam: Erythema (LOWER ABDOMINAL WALL ABSCESS WITH CELLULITIS.) MDM - Additional Information Additional Information Obtained From: Family - Differential Diagnosis Differential Diagnosis: ABDOMINAL PAIN, CP, CONTUSION, RIB FRACTURE, ABSCESS/ CELLULITIS ABD WALL. Course - Treatment Treatment: SEE ORDERS. - Education/Counseling Education/Counseling: Patient, Family, Education Educated On: Treatment, Diagnosis, Needs for Follow Up ROR - Labs Reviewed Laboratory Results Reviewed?: Yes Result Diagrams: 10/21/17 16:20 10/21/17 16:20 Laboratory: WBC 3.7 X10^3/uL (3.6-10.0) 10/21/17 16:20 RBC 3.28 X10^6/uL (4.7-6.0) L 10/21/17 16:20 Hgb 8.7 g/dL (13.5-18.0) L 10/21/17 16:20 Hct 26.4 % (42.0-54.0) L 10/21/17 16:20 MCV 80.6 fL (80.0-100.0) 10/21/17 16:20 MCH 26.4 pg (27.0-34.0) L 10/21/17 16:20 MCHC 32.8 g/dL (33.0-35.0) L 10/21/17 16:20 RDW 16.4 % (11.6-16.5) 10/21/17 16:20 Plt Count 153 X10^3/uL (150.0-450.0) 10/21/17 16:20 MPV 8.4 fL (7.4-11.0) 10/21/17 16:20 Neut % 71.4 % (42.0-75.0) 10/21/17 16:20 Lymph % 16.0 % (21.0-51.0) L 10/21/17 16:20 Amelia % 8.7 % (0.0-13.0) 10/21/17 16:20 Eos % 2.9 % (0.9-2.9) 10/21/17 16:20 Baso % 1.0 % (0.2-1.0) 10/21/17 16:20 Neut # 2.6 x10^3/uL (2.2-4.8) 10/21/17 16:20 Lymph # 0.6 X10^3/uL (1.3-2.9) L 10/21/17 16:20 Amelia # 0.3 x10^3/uL (0.3-0.8) 10/21/17 16:20 Eos # 0.1 x10^3/uL (0.0-0.2) 10/21/17 16:20 Baso # 0.0 X10^3/uL (0.0-0.1) 10/21/17 16:20 Absolute Nucleated RBC 0.0 /100WBC 10/21/17 16:20 INR Target Range - 10/21/17 16:20 INR 2.33 (0.8-1.3) H 10/21/17 16:20 PTT 45.4 SECONDS (22.9-36.5) H 10/21/17 16:20 PTT Comment - 10/21/17 16:20 Sodium 141 mmol/L (136-145) 10/21/17 16:20 Corrected Sodium 145 mmol/L (136-145) 10/21/17 16:20 Potassium 4.0 mmol/L (3.5-5.1) 10/21/17 16:20 Chloride 107 mmol/L (98-107) 10/21/17 16:20 Carbon Dioxide 24.2 mmol/L (21-32) 10/21/17 16:20 BUN 35 mg/dL (7-18) H 10/21/17 16:20 Creatinine 2.35 mg/dL (0.70-1.30) H 10/21/17 16:20 Est GFR (MDRD) Af Amer 36 (>60) L 10/21/17 16:20 Est GFR (MDRD) Non-Af 30 (>60) L 10/21/17 16:20 Glucose 246 mg/dL (65-99) H 10/21/17 16:20 Calcium 7.8 mg/dL (8.5-10.1) L 10/21/17 16:20 Corrected Calcium 9.0 mg/dL (8.5-10.1) 10/21/17 16:20 Total Bilirubin 0.80 mg/dL (0.2-1.0) 10/21/17 16:20 AST 48 Units/L (15-37) H 10/21/17 16:20 ALT 16 Units/L (12-78) 10/21/17 16:20 Alkaline Phosphatase 62 Units/L (46-116) 10/21/17 16:20 Total Protein 6.3 g/dL (6.4-8.2) L 10/21/17 16:20 Albumin 2.5 g/dL (3.4-5.0) L 10/21/17 16:20 Globulin 3.8 g/dL (2.5-4.5) 10/21/17 16:20 Albumin/Globulin Ratio 0.7 Ratio (1.1-2.1) L 10/21/17 16:20 - XRAY XRAY Interpreted by: Radiologist XRAY Findings: REPORT DISCUSS WITH PATIENT. - EKG Rhythm: NSR (EKG NOTED) - Diagnosis Discharge Problem: Abdominal wall abscess Contusion, chest wall Qualifiers: Encounter type: initial encounter Laterality: left Qualified Code(s): S20.212A - Contusion of left front wall of thorax, initial encounter Abdominal pain Qualifiers: Abdominal location: generalized Qualified Code(s): R10.84 - Generalized abdominal pain Cellulitis Qualifiers: Site of cellulitis: other site Qualified Code(s): L03.818 - Cellulitis of other sites - Discharge Plan Condition: Stable Prescriptions: Mupirocin Oint [BACTROBAN OINT 2%] 1 applic EXT BID #22 gm Sulfamethoxazole-Trimethoprim [BACTRIM DS TAB 800/160 MG *] 1 tab PO BID #20 tab - Follow ups/Referrals Follow ups/Referrals: MANI DELAROSA [Primary Care Provider] - 3 days - Instructions Instructions: Chest Pain Observation, Musculoskeletal Pain, Abscess, Easy-to- Read, Cellulitis, Adult, [id number] Additional Instructions: RETURN TO ED IF WORSE.
[2017-10-21 16:43] LABS: EOSINOPHILS # (AUTO) 0.1 x10^3/uL (0.0-0.2); EOSINOPHILS % (AUTO) 2.9 % (0.9-2.9); HEMATOCRIT 26.4 % (42.0-54.0); HEMOGLOBIN 8.7 g/dL (13.5-18.0); LYMPHOCYTES # (AUTO) 0.6 X10^3/uL (1.3-2.9); MEAN CORPUSCULAR HEMOGLOBIN 26.4 pg (27.0-34.0); MEAN CORPUSCULAR HGB CONC 32.8 g/dL (33.0-35.0); MEAN CORPUSCULAR VOLUME 80.6 fL (80.0-100.0); MEAN PLATELET VOLUME 8.4 fL (7.4-11.0); MONOCYTES # (AUTO) 0.3 x10^3/uL (0.3-0.8); MONOCYTES % (AUTO) 8.7 % (0.0-13.0); NEUTROPHILS # (AUTO) 2.6 x10^3/uL (2.2-4.8); NEUTROPHILS % (AUTO) 71.4 % (42.0-75.0); PLATELET COUNT 153 X10^3/uL (150.0-450.0); RED BLOOD COUNT 3.28 X10^6/uL (4.7-6.0); RED CELL DISTRIBUTION WIDTH 16.4 % (11.6-16.5); WHITE BLOOD COUNT 3.7 X10^3/uL (3.6-10.0)
[2017-10-21 16:54] LABS: ALBUMIN 2.5 g/dL (3.4-5.0); CALCIUM 7.8 mg/dL (8.5-10.1); CARBON DIOXIDE 24.2 mmol/L (21-32); CREATININE 2.35 mg/dL (0.70-1.30); TOTAL PROTEIN 6.3 g/dL (6.4-8.2)
--- NOTE | 2017-10-21 17:00 | CT ---
CT abdomen and pelvis without contrast Indication: Left-sided abdominal pain after fall recently Comparison: 12/21/2015 Technique: CT images of the abdomen and pelvis were obtained without contrast. Automatic exposure con trol was utilized. Findings: There is skin thickening with underlying fat stranding of the left lower abdominal wall. No large hematoma identified. Bone windows demonstrates previous L4-5 fusion with interbody spacer. No acute skeletal injury identified. Small calcified granulomas are noted within the lung bases. No acut e consolidation or significant pleural effusion. Cardiomegaly. Evaluation is limited without contrast. Previous cholecystectomy is noted. Mild splenomegaly is a new finding compared with the prior study. Borderline cirrhosis is noted. Within noncontrast limitations , the no acute traumatic injury of the liver, gallbladder, stomach, pancreas, duodenum, adrenals, or kidneys identified. There is chronic left renal atrophy. No focal bowel thickening of the lower GI tract identified. No evidence for free air or free fluid. T he urinary bladder, prostate, and rectum are unremarkable. 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 Impression: 1. No evidence for acute traumatic injury within the abdomen or pelvis, within the limitations of a n oncontrast study. Soft tissue injury of the left lower abdominal wall. 2. Borderline cirrhosis with development of mild splenomegaly, which could reflect early findings of portal venous hypertension. 3. Cardiomegaly, left renal atrophy, and other findings as above. Reported By:
[2017-10-21] MEDS ORDERED: BACTRIM DS TAB PO ONE ×2 (17:25→17:55)
[2017-10-21] MEDS ORDERED: BACITRACIN ZINC ONE (18:01)
== END 2017-10-21 18:37 | disposition home or self-care (01) ==
LOC: ER 15:13
DX: L02.211 Cutaneous abscess of abdominal wall (principal); S20.212A Contusion of left front wall of thorax, initial encounter; R10.84 Generalized abdominal pain; L03.818 Cellulitis of other sites; B95.62 Methicillin resistant Staphylococcus aureus infection as the cause of diseases classified elsewhere; I51.7 Cardiomegaly; W19.XXXA Unspecified fall, initial encounter; Y92.009 Unspecified place in unspecified non-institutional (private) residence as the place of occurrence of the external cause
CPT/HCPCS: 36415; 74176; 80053; 85025; 85610; 85730; 87070; 87075; 87077; 87186; 87205; 99283; 99285

== ENCOUNTER 2017-10-23 11:34 | Emergency (ER) | payer OTHER ==
[2017-10-23 11:39] VITALS: BP 108/56; BMI 37.5
--- NOTE | 2017-10-23 11:58 | DR.GENAD ---
HPI - PCP Primary Care Physician: juan - HPI Comment HPI Comment: SEEN 2 DAYS AGO. - Complaint/Symptoms Chief Complaint Doctors Comments: LEFT LOWER RIB AND CHEST PAIN. PERSISTENT FOR FEW DAYS AND GETTING WORSE. Chief Complaint:: pt was seen 2 days ago for the same thing in our er. pt stated he still is hurting - Nurses notes reviewed Nurses Notes Review: Yes - Source History Provided: Patient - Mode of Arrival Mode of Arrival: Ambulatory - Timing Onset of Chief Complaint: 10/21/17 Came on: Suddenly - Duration Duration: Constant Duration: Days - Severity Severity: Moderate PMH - PMH Past Medical History: Yes Past Medical History: Alzheimers, Diabetes, GERD, Hypertension, Kidney Stones Past Surgical History: Yes Surgical History: Angioplasty/Stents, Cholecystectomy, Lithotripsy, Other - Family History History of Family Medical Conditions: Yes Family Medical History: Diabetes Mellitus, Cancer, Hypertension - Social History Does patient currently use any type of tobacco product: No Have you used tobacco products in the last 12 months: No Type of Tobacco Use: None Does any household member use tobacco: No Alcohol Use: None Do you use any recreational Drugs:: No Lives With: Family Lives Where: Home - infectious screening In the last 2 months have you had wt loss of >10#?: NO Have you had fever, night sweats or hemotysis?: No Have you traveled outside the country in the last 6 months?: No Isolation: Standard ROS - Review of Systems Constitutional: Weakness, Fatigue. negative: Chills, Fever Eyes: negative: Eye Pain, Discharge ENTM: No Symptoms Reported Respiratoy: Non-Productive Cough, Short of Breath Cardiovascular: Chest Pain (LEFT LOWER CHEST PAIN, CHEST WALL PAIN) Gastrointestinal/Abdominal: Abdominal Pain Genitourinary: No Symptoms Reported Neurological: Weakness Musculoskeletal: Back Pain, Chest wall, Rib(s) Integumentary: Bruises Hematologic/Lymphatic: Easy Bleeding Endocrine: No Symptoms Reported All Other Systems: Reviewed and Negative PE - Vital Signs Vitals: Temperature 98.7 F Pulse Rate 52 Respiratory Rate 16 Blood Pressure [Right Arm] 128/61 Blood Pressure 108/56 O2 Sat by Pulse Oximetry 100 - General Limitations: No Limitations General Appearance: Alert - Head Head Exam: Normal Inspection - Eyes Eye exam: Normal Appearance - ENT ENT Exam: Normal External Ear Exam External Ear Exam: Normal External Inspection TM/Canal Exam: Bilateral Normal Nose Exam: Normal Nose Exam Mouth Exam: Normal Inspection Throat Exam: Normal Inspection - Neck Neck Exam: Trachea Midline - Chest Chest Inspection: Symmetric Chest Wall Rise, Tenderness (LEFT LOWER CHEST) - Respiratory Respiratory Exam: Respiratory Distress Respiratory Exam: Bilateral Rhonchi, Lower Rhonchi - Cardiovascular Cardiovascular Exam: Regular Rate, Normal Rhythm, Normal Heart Sounds - Abdominal Exam Abdominal Exam: Normal Inspection - Extremities Extremities Exam: Edema (TRACE) - Back Back Exam: Paraspinal Tenderness - Neurologic Neurological Exam: Alert, Oriented X3 - Psychiatric Psychiatric Exam: Normal Affect, Normal Mood - Skin Skin Exam: Erythema MDM - Differential Diagnosis Differential Diagnosis: RIB FRATURE, CONTUSION, SPRAIN LEFT SIDE. Course - Treatment Treatment: SEE ORDERS - Education/Counseling Education/Counseling: Patient, Family, Education Educated On: Diagnosis, Needs for Follow Up ROR - XRAY XRAY Interpreted by: Radiologist XRAY Findings: REPORT DISCUSS WITH PATIENT. - Diagnosis Discharge Problem: Rib fractures Qualifiers: Encounter type: subsequent encounter Rib fracture type: single rib Fracture type: closed Laterality: left Fracture healing: with routine healing Qualified Code(s): S22.32XD - Fracture of one rib, left side, subsequent encounter for fracture with routine healing Contusion of rib on left side Qualifiers: Encounter type: subsequent encounter Qualified Code(s): S20.212D - Contusion of left front wall of thorax, subsequent encounter - Discharge Plan Disposition: 01 HOME, SELF-CARE Condition: Stable - Follow ups/Referrals Follow ups/Referrals: MANI DELAROSA [Primary Care Provider] - 3 days - Instructions Instructions: Rib Contusion, Rib Fracture, [id number] Additional Instructions: RETURN TO ED IF WORSE.
--- NOTE | 2017-10-23 12:53 | CT ---
HISTORY: Chest trauma, left-sided rib pain Study: CT chest without contrast Comparison: None Technique: Axial noncontrast images with coronal and sagittal reformats. Dose reduction procedures we re used with mA/kv adjusted for body size. The examination is limited due to the lack of intravenous contrast which limits the evaluation of the thoracic aorta, visualized solid organs of the upper abdo men, at evaluation for active hemorrhage. Findings: Examination of the mediastinum demonstrates no evidence for mediastinal hematoma. Calcific atheroscle rotic changes present in a nondilated thoracic aorta. Evaluation for traumatic injury of the thoracic aorta is limited due to the lack of intravenous contrast. Coronary artery calcifications are present . The heart is enlarged. A small left pleural effusion is present. Those portions of the upper abdomi nal organs visualized were within normal limits to the limitations of an unenhanced examination. Ther e is a fracture of the left lateral 11th rib. Examination of the lung carey demonstrates no evidence for pneumothorax. There is slight increased parenchymal density in the left lower lobe possibly a sm all contusion. No nodules, masses, areas of consolidation, peribronchial thickening, or bronchiectasi s is identified. Benign calcified granulomas are present on the right. IMPRESSION: Fracture left lateral 11th rib Slight increased parenchymal density inferiorly in the left lower lobe possibly a mild lung contusion Reported By:
== END 2017-10-23 13:30 | disposition home or self-care (01) ==
LOC: ER 11:43
DX: S22.32XD Fracture of one rib, left side, subsequent encounter for fracture with routine healing (principal); S20.212D Contusion of left front wall of thorax, subsequent encounter
CPT/HCPCS: 71250; 99282

== ENCOUNTER → 2017-10-27 | Outpatient (CLI) | payer OTHER ==
[2017-10-23 11:39] VITALS: BP 108/56
[2017-10-27 13:40] LABS: EOSINOPHILS # (AUTO) 0.1 x10^3/uL (0.0-0.2); EOSINOPHILS % (AUTO) 3.8 % (0.9-2.9); HEMATOCRIT 26.4 % (42.0-54.0); HEMOGLOBIN 8.6 g/dL (13.5-18.0); LYMPHOCYTES # (AUTO) 0.5 X10^3/uL (1.3-2.9); LYMPHOCYTES % (AUTO) 14.7 % (21.0-51.0); MEAN CORPUSCULAR HEMOGLOBIN 26.4 pg (27.0-34.0); MEAN CORPUSCULAR HGB CONC 32.7 g/dL (33.0-35.0); MEAN CORPUSCULAR VOLUME 80.8 fL (80.0-100.0); MEAN PLATELET VOLUME 8.6 fL (7.4-11.0); MONOCYTES # (AUTO) 0.3 x10^3/uL (0.3-0.8); MONOCYTES % (AUTO) 8.2 % (0.0-13.0); NEUTROPHILS # (AUTO) 2.7 x10^3/uL (2.2-4.8); NEUTROPHILS % (AUTO) 72.3 % (42.0-75.0); PLATELET COUNT 170 X10^3/uL (150.0-450.0); RED BLOOD COUNT 3.27 X10^6/uL (4.7-6.0); RED CELL DISTRIBUTION WIDTH 16.7 % (11.6-16.5); WHITE BLOOD COUNT 3.7 X10^3/uL (3.6-10.0)
== END ==
LOC: LAB 13:16
PROVIDERS: ATTEND Nurse Practitioner Family
DX: D64.9 Anemia, unspecified (principal)
CPT/HCPCS: 36415; 85025

== ENCOUNTER → 2017-11-03 | Outpatient (CLI) | payer OTHER ==
[2017-10-23 11:39] VITALS: BP 108/56
[2017-11-03 16:03] LABS: BASOPHILS % (AUTO) 0.8 % (0.2-1.0); EOSINOPHILS # (AUTO) 0.1 x10^3/uL (0.0-0.2); EOSINOPHILS % (AUTO) 2.8 % (0.9-2.9); HEMATOCRIT 26.9 % (42.0-54.0); HEMOGLOBIN 8.7 g/dL (13.5-18.0); LYMPHOCYTES # (AUTO) 0.6 X10^3/uL (1.3-2.9); LYMPHOCYTES % (AUTO) 11.8 % (21.0-51.0); MEAN CORPUSCULAR HEMOGLOBIN 26.2 pg (27.0-34.0); MEAN CORPUSCULAR HGB CONC 32.4 g/dL (33.0-35.0); MEAN CORPUSCULAR VOLUME 80.6 fL (80.0-100.0); MEAN PLATELET VOLUME 7.8 fL (7.4-11.0); MONOCYTES # (AUTO) 0.4 x10^3/uL (0.3-0.8); MONOCYTES % (AUTO) 8.5 % (0.0-13.0); NEUTROPHILS # (AUTO) 3.7 x10^3/uL (2.2-4.8); NEUTROPHILS % (AUTO) 76.1 % (42.0-75.0); PLATELET COUNT 215 X10^3/uL (150.0-450.0); RED BLOOD COUNT 3.34 X10^6/uL (4.7-6.0); RED CELL DISTRIBUTION WIDTH 17.3 % (11.6-16.5); WHITE BLOOD COUNT 4.9 X10^3/uL (3.6-10.0)
== END | disposition home or self-care (01) ==
LOC: LAB 15:49
PROVIDERS: ATTEND Nurse Practitioner Family
DX: D75.89 Other specified diseases of blood and blood-forming organs (principal); K92.2 Gastrointestinal hemorrhage, unspecified
CPT/HCPCS: 36415; 85025

== ENCOUNTER → 2017-11-12 | Outpatient (CLI) | payer OTHER ==
[2017-10-23 11:39] VITALS: BP 108/56
[2017-11-12 15:38] LABS: BASOPHILS % (AUTO) 0.8 % (0.2-1.0); EOSINOPHILS # (AUTO) 0.2 x10^3/uL (0.0-0.2); EOSINOPHILS % (AUTO) 3.8 % (0.9-2.9); HEMATOCRIT 26.3 % (42.0-54.0); HEMOGLOBIN 8.7 g/dL (13.5-18.0); LYMPHOCYTES # (AUTO) 0.6 X10^3/uL (1.3-2.9); LYMPHOCYTES % (AUTO) 14.2 % (21.0-51.0); MEAN CORPUSCULAR HEMOGLOBIN 26.2 pg (27.0-34.0); MEAN CORPUSCULAR HGB CONC 33.1 g/dL (33.0-35.0); MEAN CORPUSCULAR VOLUME 79.2 fL (80.0-100.0); MEAN PLATELET VOLUME 7.6 fL (7.4-11.0); MONOCYTES # (AUTO) 0.4 x10^3/uL (0.3-0.8); MONOCYTES % (AUTO) 8.8 % (0.0-13.0); NEUTROPHILS # (AUTO) 3.2 x10^3/uL (2.2-4.8); NEUTROPHILS % (AUTO) 72.4 % (42.0-75.0); PLATELET COUNT 183 X10^3/uL (150.0-450.0); RED BLOOD COUNT 3.32 X10^6/uL (4.7-6.0); RED CELL DISTRIBUTION WIDTH 16.2 % (11.6-16.5); WHITE BLOOD COUNT 4.5 X10^3/uL (3.6-10.0)
== END ==
LOC: LAB 15:20
PROVIDERS: ATTEND Nurse Practitioner Family
DX: K92.2 Gastrointestinal hemorrhage, unspecified (principal); D64.89 Other specified anemias
CPT/HCPCS: 36415; 85025

== ENCOUNTER 2017-11-16 17:37 | Emergency (ER) | payer OTHER ==
[2017-11-16 17:46] VITALS: BMI 37.5
[2017-11-16] MEDS ORDERED: NS 1000 ML 1,000 ML ONE ×2 (17:53→22:36)
--- NOTE | 2017-11-16 18:41 | DR.GENAD ---
HPI - PCP Primary Care Physician: VIVIAN BRIZUELA - HPI Comment HPI Comment: PATIENT IS HAVING CHEST PAIN, HAVE HEALING RIB FRACTURE DUE TO RECENT FALL. - Complaint/Symptoms Chief Complaint Doctors Comments: ELEVATED GLUCOSE AND SLOW PULSE RATE. BP ELEVATED AT HOME BUT LOW IN ED. FEELING DIZZY AND HAVING NEAR SYNCOPAL FEELING. PATIENT TAKES 50MG METOPROLOL DAILY. PATIENT HAVE ANEMIA, HAD BLOOD TRASFUSION FEW WEEKS AGO. NO MELENA, HEMOGLOBIN DECREASING ALREADY. PATIENT HAVE PARISI. Chief Complaint:: PT C/O B/O > 163/136 , PT C/O HAVING INCREASED BS ,AND FEELING DIZZY AND PT C/O THAT HIS MD IS TRYING TO TITRATE HIS MEDS ,,,,, Self Treatment fo Chief Complaint: PT HAS HAD EPISODES OF LOW HR AND THEY HAD TO GIVE HIME SOMETHING TO BRING IT UP ,, ,FAMILY C/O PT WAS WEAK AND HAD TO BE HELPED UP THE STEPS.. - Nurses notes reviewed Nurses Notes Review: Yes - Source History Provided: Patient, Family Member - Mode of Arrival Mode of Arrival: Wheelchair - Timing Onset of Chief Complaint: 11/16/17 Came on: Suddenly - Duration Duration: Constant Duration: Hours - Severity Severity: Moderate PMH - PMH Past Medical History: Yes Past Medical History: Alzheimers, Anemia, Diabetes, GERD, Hypertension, Kidney Stones Past Medical History Comment: AFIB... Past Surgical History: Yes Surgical History: Angioplasty/Stents, Cholecystectomy, Lithotripsy, Other - Family History History of Family Medical Conditions: Yes Family Medical History: Diabetes Mellitus, Cancer, Hypertension - Social History Does patient currently use any type of tobacco product: No Have you used tobacco products in the last 12 months: No Type of Tobacco Use: None Does any household member use tobacco: No Do you use any recreational Drugs:: No Lives With: Family Lives Where: Home - infectious screening In the last 2 months have you had wt loss of >10#?: NO Have you had fever, night sweats or hemotysis?: No Have you traveled outside the country in the last 6 months?: No Isolation: Standard ROS - Review of Systems Constitutional: Weakness, Fatigue, Loss of Appetite. negative: Chills, Fever Eyes: negative: Eye Pain, Discharge ENTM: Nose Discharge, Nose Congestion. negative: Ear Pain, Throat Pain Respiratoy: Non-Productive Cough Cardiovascular: Chest Pain (CHEST WALL PAIN ALSO DUE TO RIB FRACTURE.) Gastrointestinal/Abdominal: negative: Abdominal Pain, Nausea, Vomiting Genitourinary: negative: Discharge, Dysuria, Frequency, Hematuria Neurological: Headache, Tremors, Weakness, Dizziness, Other (PARKINSONS WITH TREMORS) Musculoskeletal: Muscle Pain Integumentary: Change in Color, Other (SKIN ABRSION ON ABDOMENWAS BLEEDING EARLY ON BUT NOT CURRENTLY.) Hematologic/Lymphatic: Anemia, Easy Bleeding, Easy Bruising Endocrine: No Symptoms Reported. negative: Flushing All Other Systems: Reviewed and Negative PE - Vital Signs Vitals: Temperature 97.8 F Pulse Rate [Left Brachial] 49 Pulse Rate 47 Respiratory Rate 16 Blood Pressure [Right Arm] 131/60 Blood Pressure 77/41 O2 Sat by Pulse Oximetry 100 - General Limitations: No Limitations General Appearance: Alert - Head Head Exam: Normal Inspection - Eyes Eye exam: PERRL, EOMI. negative: Scleral Icterus, Conjunctival Injection - ENT ENT Exam: Normal External Ear Exam External Ear Exam: Normal External Inspection TM/Canal Exam: Bilateral Normal Nose Exam: Normal Nose Exam Mouth Exam: Normal Inspection Throat Exam: Normal Inspection - Neck Neck Exam: Trachea Midline - Chest Chest Inspection: Symmetric Chest Wall Rise - Respiratory Respiratory Exam: Respiratory Distress Respiratory Exam: Bilateral Wheezing, Bilateral Rhonchi, Upper Wheezing, Upper Rhonchi, Lower Wheezing, Lower Rhonchi - Cardiovascular Cardiovascular Exam: Bradycardia - Abdominal Exam Abdominal Exam: Normal Bowel Sounds, Soft, Tenderness Abdominal Tenderness: Suprapubic, Mild - Extremities Extremities Exam: Normal Inspection - Back Back Exam: Normal Inspection - Neurologic Neurological Exam: Alert, Oriented X3 - Psychiatric Psychiatric Exam: Normal Affect, Normal Mood - Skin Skin Exam: Normal Color MDM - Additional Information Additional Information Obtained From: Family - Differential Diagnosis Differential Diagnosis: BRADYCARDIA, DIZZINESS, NEAR SYNCOPE, ANEMIA, CHEST PAIN Course - Treatment Treatment: SEE ORDERS. - Education/Counseling Education/Counseling: Patient, Family, Education Educated On: Diagnosis, Needs for Follow Up ROR - Labs Reviewed Laboratory Results Reviewed?: Yes Result Diagrams: 11/16/17 18:00 11/16/17 18:00 Laboratory: WBC 3.1 X10^3/uL (3.6-10.0) L 11/16/17 18:00 RBC 2.69 X10^6/uL (4.7-6.0) L 11/16/17 18:00 Hgb 7.1 g/dL (13.5-18.0) L 11/16/17 18:00 Hct 22.0 % (42.0-54.0) L 11/16/17 18:00 MCV 81.5 fL (80.0-100.0) 11/16/17 18:00 MCH 26.5 pg (27.0-34.0) L 11/16/17 18:00 MCHC 32.6 g/dL (33.0-35.0) L 11/16/17 18:00 RDW 16.9 % (11.6-16.5) H 11/16/17 18:00 Plt Count 134 X10^3/uL (150.0-450.0) L 11/16/17 18: Plt Count Comment Adequate (ADEQUATE) 11/16/17 18: MPV 8.9 fL (7.4-11.0) 11/16/17 18:00 Neut % 65.1 % (42.0-75.0) 11/16/17 18:00 Lymph % 19.0 % (21.0-51.0) L 11/16/17 18:00 [place] % 10.5 % (0.0-13.0) 11/16/17 18:00 Eos % 4.5 % (0.9-2.9) H 11/16/17 18:00 Baso % 0.9 % (0.2-1.0) 11/16/17 18:00 Neut # 2.0 x10^3/uL (2.2-4.8) L 11/16/17 18:00 Lymph # 0.6 X10^3/uL (1.3-2.9) L 11/16/17 18:00 [place] # 0.3 x10^3/uL (0.3-0.8) 11/16/17 18:00 Eos # 0.1 x10^3/uL (0.0-0.2) 11/16/17 18:00 Baso # 0.0 X10^3/uL (0.0-0.1) 11/16/17 18:00 Absolute Nucleated RBC 0.2 /100WBC 11/16/17 18:00 Plt Morphology Comment Normal (NORMAL) 11/16/17 18:00 RBC Morphology Abnormal (NORMAL) 11/16/17 18:00 Hypochromasia Slight A 11/16/17 18:00 Anisocytosis Slight A 11/16/17 18:00 INR Target Range - 11/16/17 18:00 INR 2.61 (0.8-1.3) H 11/16/17 18:00 PTT 43.0 SECONDS (22.9-36.5) H 11/16/17 18:00 PTT Comment - 11/16/17 18:00 Sodium 135 mmol/L (136-145) L 11/16/17 18:00 Corrected Sodium 137 mmol/L (136-145) 11/16/17 18:00 Potassium 4.8 mmol/L (3.5-5.1) 11/16/17 18:00 Chloride 105 mmol/L (98-107) 11/16/17 18:00 Carbon Dioxide 22.9 mmol/L (21-32) 11/16/17 18:00 BUN 62 mg/dL (7-18) H 11/16/17 18:00 Creatinine 3.36 mg/dL (0.70-1.30) H 11/16/17 18:00 Est GFR (MDRD) Af Amer 24 (>60) L 11/16/17 18:00 Est GFR (MDRD) Non-Af 20 (>60) L 11/16/17 18:00 Glucose 195 mg/dL (65-99) H 11/16/17 18:00 Calcium 8.0 mg/dL (8.5-10.1) L 11/16/17 18:00 Corrected Calcium 9.2 mg/dL (8.5-10.1) 11/16/17 18:00 Magnesium 2.1 mg/dL (1.7-2.9) 11/16/17 18:00 Total Bilirubin 0.50 mg/dL (0.2-1.0) 11/16/17 18:00 AST 72 Units/L (15-37) H 11/16/17 18:00 ALT 19 Units/L (12-78) 11/16/17 18:00 Alkaline Phosphatase 127 Units/L (46-116) H 11/16/17 18:00 Creatine Kinase 22 Units/L (39-308) L 11/16/17 18:00 CK-MB (CK-2) < 1.0 ng/mL (0-4.0) 11/16/17 18:00 CK/CKMB % Calc 4.6 % (<4) 11/16/17 18:00 Troponin I < 0.02 ng/mL (0-1.5) 11/16/17 18:00 B-Natriuretic Peptide 122 pg/mL (0-79) H 11/16/17 18:00 Total Protein 5.9 g/dL (6.4-8.2) L 11/16/17 18:00 Albumin 2.5 g/dL (3.4-5.0) L 11/16/17 18:00 Globulin 3.4 g/dL (2.5-4.5) 11/16/17 18:00 Albumin/Globulin Ratio 0.7 Ratio (1.1-2.1) L 11/16/17 18:00 Specimen Type Clean catch urine 11/16/17 20:52 Urine Color Yellow (YELLOW) 11/16/17 20:52 Urine Appearance Hazy (CLEAR) 11/16/17 20:52 Urine pH 5.0 (5.0 - 8.0) 11/16/17 20:52 Ur Specific [place] 1.015 (1.000-1.030) 11/16/17 20:52 Urine Protein 1+ (NEGATIVE) 11/16/17 20:52 Urine Glucose (UA) Negative (NEGATIVE) 11/16/17 20:52 Urine Ketones 1+ (NEGATIVE) 11/16/17 20:52 Urine Occult Blood 3+ (NEGATIVE) 11/16/17 20:52 Urine Nitrite Negative (NEGATIVE) 11/16/17 20:52 Urine Bilirubin Negative (NEGATIVE) 11/16/17 20:52 Urine Urobilinogen Normal (NORMAL) 11/16/17 20:52 Ur Leukocyte Esterase Negative (NEGATIVE) 11/16/17 20:52 Urine RBC 20-25 /HPF (NEGATIVE) 11/16/17 20:52 Urine WBC 0-5 /HPF (NEGATIVE) 11/16/17 20:52 Ur Squamous Epith Cells Negative /HPF (NEGATIVE) 11/16/17 20:52 Urine Bacteria Trace /HPF (NEGATIVE) 11/16/17 20:52 Ur Culture Indicated? No/not indicated 11/16/17 20:52 - XRAY XRAY Interpreted by: Radiologist XRAY Findings: REPORT DISCUSS WITH PATIENT AND FAMILY. - EKG Rhythm: NSR (EKG NOTED.) - Diagnosis Discharge Problem: Bradycardia Anemia Qualifiers: Anemia type: other cause Other causes of anemia: other cause, not classified Qualified Code(s): D64.89 - Other specified anemias Hypotension Qualifiers: Hypotension type: other hypotension type Qualified Code(s): I95.89 - Other hypotension A-fib Qualifiers: Atrial fibrillation type: chronic Qualified Code(s): I48.2 - Chronic atrial fibrillation - Discharge Plan Disposition: [facility]FER [facility] Condition: Stable - Follow ups/Referrals Follow ups/Referrals: NFD,None [Primary Care Provider] - 3 days - Instructions
[2017-11-16 18:45] LABS: BASOPHILS % (AUTO) 0.9 % (0.2-1.0); EOSINOPHILS # (AUTO) 0.1 x10^3/uL (0.0-0.2); EOSINOPHILS % (AUTO) 4.5 % (0.9-2.9); HEMOGLOBIN 7.1 g/dL (13.5-18.0); LYMPHOCYTES # (AUTO) 0.6 X10^3/uL (1.3-2.9); MEAN CORPUSCULAR HEMOGLOBIN 26.5 pg (27.0-34.0); MEAN CORPUSCULAR HGB CONC 32.6 g/dL (33.0-35.0); MEAN CORPUSCULAR VOLUME 81.5 fL (80.0-100.0); MEAN PLATELET VOLUME 8.9 fL (7.4-11.0); MONOCYTES # (AUTO) 0.3 x10^3/uL (0.3-0.8); MONOCYTES % (AUTO) 10.5 % (0.0-13.0); NEUTROPHILS % (AUTO) 65.1 % (42.0-75.0); PLATELET COUNT 134 X10^3/uL (150.0-450.0); RED BLOOD COUNT 2.69 X10^6/uL (4.7-6.0); RED CELL DISTRIBUTION WIDTH 16.9 % (11.6-16.5); WHITE BLOOD COUNT 3.1 X10^3/uL (3.6-10.0)
--- NOTE | 2017-11-16 18:46 | RAD ---
Single view of the chest Indication: Dizziness Findings/conclusion: There is cardiomegaly. No pulmonary edema is seen. Lungs are clear. Reported By:
[2017-11-16 18:48] LABS: BLOOD UREA NITROGEN 62 mg/dL (7-18); CARBON DIOXIDE 22.9 mmol/L (21-32); CHLORIDE 105 mmol/L (98-107); COR NA(FOR HYPERGLY) 137 mmol/L (136-145); CREATININE 3.36 mg/dL (0.70-1.30); SODIUM 135 mmol/L (136-145); TROPONIN I < 0.02 ng/mL (0-1.5); eGFR BLACK RACES 24 (>60); eGFR NON BLACK RACES 20 (>60)
[2017-11-16 18:51] LABS: B-TYPE NATRIURETIC PEPTIDE 122 pg/mL (0-79)
[2017-11-16 18:53] LABS: ALANINE AMINOTRANSFERASE 19 Units/L (12-78); ALBUMIN 2.5 g/dL (3.4-5.0); ALKALINE PHOSPHATASE 127 Units/L (46-116); ASPARTATE AMINO TRANSFERASE 72 Units/L (15-37); CKMB % 4.6 % (<4); COR CA(FOR HYPOALB) 9.2 mg/dL (8.5-10.1); CREATINE KINASE 22 Units/L (39-308); CREATINE KINASE MB < 1.0 ng/mL (0-4.0); MAGNESIUM 2.1 mg/dL (1.7-2.9); TOTAL PROTEIN 5.9 g/dL (6.4-8.2)
[2017-11-16 18:55] LABS: ANISOCYTOSIS SLIGHT; HYPOCHROMASIA SLIGHT; PLATELET MORPHOLOGY COMMENT NORMAL (NORMAL)
[2017-11-16] MEDS ORDERED: NS 1000 ML 1,000 ML IV SCH ×2 (19:00→22:44)
[2017-11-16 21:01] LABS: BILIRUBIN,URINE NEGATIVE (NEGATIVE); BLOOD/HEMOGLOBIN,URINE 3+ (NEGATIVE); GLUCOSE, URINE NEGATIVE (NEGATIVE); KETONES,URINE 1+ (NEGATIVE); LEUKOCYTE ESTERASE ,URINE NEGATIVE (NEGATIVE); NITRITES,URINE NEGATIVE (NEGATIVE); PROTEIN,URINE 1+ (NEGATIVE); UROBILINOGEN,URINE NORMAL (NORMAL)
[2017-11-16 21:05] LABS: APPEARANCE,URINE HAZY (CLEAR); COLOR,URINE YELLOW (YELLOW)
[2017-11-16 21:06] LABS: BACTERIA,URINE TRACE /HPF (NEGATIVE); RBC,URINE 20-25 /HPF (NEGATIVE); SQUAMOUS EPITHELIAL CELL,UR NEGATIVE /HPF (NEGATIVE)
[2017-11-16 22:47] VITALS: BP 131/60
== END 2017-11-16 22:53 | disposition short-term general hospital (02) ==
LOC: ER 17:52
DX: R00.1 Bradycardia, unspecified (principal); D64.89 Other specified anemias; I95.89 Other hypotension; I48.2 Chronic atrial fibrillation; I51.7 Cardiomegaly
CPT/HCPCS: 36415; 71045; 80053; 81001; 82550; 82553; 83735; 83880; 84484; 85025; 85610; 85730; 93005; 93010; 96365; 96367; 99285; A4222

== ENCOUNTER → 2017-12-09 | Outpatient (CLI) | payer OTHER ==
[2017-11-16 22:47] VITALS: BP 131/60
[2017-12-09 17:07] LABS: BASOPHILS % (AUTO) 1.2 % (0.2-1.0); EOSINOPHILS # (AUTO) 0.1 x10^3/uL (0.0-0.2); EOSINOPHILS % (AUTO) 2.6 % (0.9-2.9); HEMATOCRIT 27.3 % (42.0-54.0); LYMPHOCYTES # (AUTO) 0.4 X10^3/uL (1.3-2.9); LYMPHOCYTES % (AUTO) 15.7 % (21.0-51.0); MEAN CORPUSCULAR HEMOGLOBIN 29.8 pg (27.0-34.0); MEAN CORPUSCULAR HGB CONC 32.9 g/dL (33.0-35.0); MEAN CORPUSCULAR VOLUME 90.6 fL (80.0-100.0); MEAN PLATELET VOLUME 7.9 fL (7.4-11.0); MONOCYTES # (AUTO) 0.2 x10^3/uL (0.3-0.8); MONOCYTES % (AUTO) 9.2 % (0.0-13.0); NEUTROPHILS # (AUTO) 1.7 x10^3/uL (2.2-4.8); NEUTROPHILS % (AUTO) 71.3 % (42.0-75.0); PLATELET COUNT 146 X10^3/uL (150.0-450.0); RED BLOOD COUNT 3.01 X10^6/uL (4.7-6.0); RED CELL DISTRIBUTION WIDTH 22.5 % (11.6-16.5); RETICULOCYTE % 4.16 % (0.8-2.2); WHITE BLOOD COUNT 2.4 X10^3/uL (3.6-10.0)
[2017-12-09 17:31] LABS: ALBUMIN 2.4 g/dL (3.4-5.0); CARBON DIOXIDE 21.7 mmol/L (21-32); COR CA(FOR HYPOALB) 9.3 mg/dL (8.5-10.1); CREATININE 1.99 mg/dL (0.70-1.30)
[2017-12-09 17:49] LABS: BASOPHILS % (MANUAL) 1 % (0-1)
[2017-12-09 17:51] LABS: ANISOCYTOSIS 2+; HYPOCHROMASIA SLIGHT; PLATELET MORPHOLOGY COMMENT NORMAL (NORMAL)
== END ==
LOC: LAB 16:23
PROVIDERS: ATTEND Internal Medicine Hematology & Oncology
DX: D64.9 Anemia, unspecified (principal); R19.5 Other fecal abnormalities; Z79.899 Other long term (current) drug therapy
CPT/HCPCS: 36415; 80053; 82270; 82525; 82607; 82728; 82746; 83010; 83540; 83550; 83615; 85025; 85045; 85060

== ENCOUNTER → 2018-01-03 | Outpatient (CLI) | payer OTHER ==
[2018-01-03 14:06] LABS: HEMOGLOBIN A1C 4.6 %
[2018-01-03 14:18] LABS: ALANINE AMINOTRANSFERASE 13 Units/L (12-78); ALBUMIN 2.8 g/dL (3.4-5.0); ALKALINE PHOSPHATASE 109 Units/L (46-116); ASPARTATE AMINO TRANSFERASE 34 Units/L (15-37); BLOOD UREA NITROGEN 25 mg/dL (7-18); CALCIUM 8.1 mg/dL (8.5-10.1); CARBON DIOXIDE 24.2 mmol/L (21-32); CHLORIDE 109 mmol/L (98-107); CHOL/HDL RATIO 3.9 (0.0-5.0); CHOLESTEROL 93 mg/dL (0-200); COR CA(FOR HYPOALB) 9.1 mg/dL (8.5-10.1); CREATININE 1.77 mg/dL (0.70-1.30); HDL CHOLESTEROL 24 mg/dL (40-60); SODIUM 142 mmol/L (136-145); T4 (THYROXINE) 11.2 ug/dL (4.7-13.3); TOTAL PROTEIN 6.4 g/dL (6.4-8.2); TRIGLYCERIDES 78 mg/dL (0-150); TSH (3RD GENERATION) 2.147 uIU/mL (0.358-3.74); eGFR BLACK RACES 50 (>60); eGFR NON BLACK RACES 41 (>60)
[2018-01-03 14:36] LABS: EOSINOPHILS # (AUTO) 0.1 x10^3/uL (0.0-0.2); LYMPHOCYTES # (AUTO) 0.3 X10^3/uL (1.3-2.9); MEAN PLATELET VOLUME 8.5 fL (7.4-11.0); MONOCYTES # (AUTO) 0.2 x10^3/uL (0.3-0.8); NEUTROPHILS # (AUTO) 1.7 x10^3/uL (2.2-4.8); WHITE BLOOD COUNT 2.3 X10^3/uL (3.6-10.0)
[2018-01-03 14:40] LABS: EOSINOPHILS % (AUTO) 3.5 % (0.9-2.9); HEMATOCRIT 28.2 % (42.0-54.0); HEMOGLOBIN 9.6 g/dL (13.5-18.0); LYMPHOCYTES % (AUTO) 14.7 % (21.0-51.0); MEAN CORPUSCULAR HEMOGLOBIN 30.6 pg (27.0-34.0); MEAN CORPUSCULAR HGB CONC 34.2 g/dL (33.0-35.0); MEAN CORPUSCULAR VOLUME 89.7 fL (80.0-100.0); MONOCYTES % (AUTO) 9.8 % (0.0-13.0); PLATELET COUNT 135 X10^3/uL (150.0-450.0); RED BLOOD COUNT 3.15 X10^6/uL (4.7-6.0); RED CELL DISTRIBUTION WIDTH 17.8 % (11.6-16.5); TRANSFERRIN 300 mg/dL (202-364)
[2018-01-03 15:40] LABS: BAND NEUTROPHILS % 4 % (0-10); BASOPHILS % (MANUAL) 1 % (0-1)
[2018-01-03 15:41] LABS: ERYTHROCYTE SEDIMENTATION RATE 15 MM/HOUR (0-15); PLATELET MORPHOLOGY COMMENT NORMAL (NORMAL)
== END ==
LOC: LAB 13:24
PROVIDERS: ATTEND Psychiatry & Neurology Neurology
DX: D64.9 Anemia, unspecified (principal); Z86.79 Personal history of other diseases of the circulatory system; Z12.5 Encounter for screening for malignant neoplasm of prostate; E11.69 Type 2 diabetes mellitus with other specified complication; I48.91 Unspecified atrial fibrillation; M15.9 Polyosteoarthritis, unspecified
CPT/HCPCS: 36415; 80053; 80061; 82607; 82728; 82746; 83036; 84153; 84154; 84436; 84443; 84466; 85025; 85652

== ENCOUNTER → 2018-01-07 | Outpatient (CLI) | payer OTHER | LOC: LAB 12:15 | PROVIDERS: ATTEND Psychiatry & Neurology Neurology | DX: R19.4 Change in bowel habit (principal); R19.5 Other fecal abnormalities | CPT/HCPCS: 82274; 87045; 87338; 87427; 87449; 87493 ==

== ENCOUNTER → 2018-02-11 | Outpatient (CLI) | payer OTHER ==
[2018-02-11 16:18] LABS: IRON 188 ug/dL (50-175); TOTAL IRON BINDING CAPACITY 348 ug/dL (250-450)
== END ==
LOC: LAB 15:09
PROVIDERS: ATTEND Nurse Practitioner Family
DX: D64.9 Anemia, unspecified (principal)
CPT/HCPCS: 36415; 82728; 83540; 83550

== ENCOUNTER 2018-06-04 13:51 | Inpatient (IN) ==
[2018-06-04] MEDS ORDERED: HumuLIN R SC PRN (16:22)
[2018-06-04] MEDS ORDERED: LASIX IVP ONE (16:26)
[2018-06-04] MEDS: DUONEB 0.5 MG/3 MG NEB SCH ×2 (17:05→20:45)
[2018-06-04 17:10] LABS: HEMOGLOBIN 7.2 g/dL (13.5-18.0)
[2018-06-04 17:21] LABS: TSH (3RD GENERATION) 2.742 uIU/mL (0.358-3.74)
[2018-06-04] MEDS ORDERED: SALINE 3% 15 ML NEB TX ONE (17:21)
[2018-06-04] MEDS: MAG-OX TAB PO SCH (18:31)
[2018-06-04] MEDS: VANCOMYCIN HCL PO SCH (21:34)
[2018-06-04] MEDS: PEPCID 20 MG IV PREMIX* 20 MG/50 ML BAG IV SCH (21:35)
[2018-06-05] MEDS ORDERED: NS 500 ML IV 500 ML IV ONE ×2 (00:12→03:32)
[2018-06-05] MEDS: VANCOMYCIN HCL PO SCH ×4 (03:56→20:58)
--- NOTE | 2018-06-05 07:43 | RAD ---
HISTORY: Shortness of breath Study: Single-view chest Comparison: 06/04/2018 Findings: The trachea is midline. The cardiac silhouette is stable in appearance. Hazy density within the low er right lung is concerning for pneumonia. The left lung is clear. The bony thorax is grossly intact . IMPRESSION: 1. Findings concerning for developing pneumonia within the lower right lung. Follow-up is recommende d Reported By:
[2018-06-05 09:04] LABS: BASOPHILS % (AUTO) 0.8 % (0.2-1.0); EOSINOPHILS # (AUTO) 0.2 x10^3/uL (0.0-0.2); EOSINOPHILS % (AUTO) 4.4 % (0.9-2.9); HEMATOCRIT 27.7 % (42.0-54.0); HEMOGLOBIN 9.3 g/dL (13.5-18.0); LYMPHOCYTES # (AUTO) 0.5 X10^3/uL (1.3-2.9); LYMPHOCYTES % (AUTO) 15.8 % (21.0-51.0); MEAN CORPUSCULAR HEMOGLOBIN 29.1 pg (27.0-34.0); MEAN CORPUSCULAR HGB CONC 33.5 g/dL (33.0-35.0); MEAN PLATELET VOLUME 7.7 fL (7.4-11.0); MONOCYTES # (AUTO) 0.4 x10^3/uL (0.3-0.8); MONOCYTES % (AUTO) 10.1 % (0.0-13.0); NEUTROPHILS # (AUTO) 2.4 x10^3/uL (2.2-4.8); NEUTROPHILS % (AUTO) 68.9 % (42.0-75.0); PLATELET COUNT 178 X10^3/uL (150.0-450.0); RED BLOOD COUNT 3.18 X10^6/uL (4.7-6.0); RED CELL DISTRIBUTION WIDTH 15.5 % (11.6-16.5); WHITE BLOOD COUNT 3.5 X10^3/uL (3.6-10.0)
[2018-06-05] MEDS: DUONEB 0.5 MG/3 MG NEB SCH ×4 (09:12→20:27)
[2018-06-05 09:13] LABS: ALBUMIN 2.1 g/dL (3.4-5.0); CALCIUM 7.7 mg/dL (8.5-10.1); CARBON DIOXIDE 23.1 mmol/L (21-32); COR CA(FOR HYPOALB) 9.2 mg/dL (8.5-10.1); CREATININE 1.63 mg/dL (0.70-1.30); MAGNESIUM 1.5 mg/dL (1.7-2.9); TOTAL PROTEIN 5.6 g/dL (6.4-8.2)
[2018-06-05] MEDS ORDERED: VENOFER IV ONE (09:29)
[2018-06-05] MEDS: MAG-OX TAB PO SCH ×2 (09:46→17:34)
[2018-06-05] MEDS: PEPCID 20 MG IV PREMIX* 20 MG/50 ML BAG IV SCH (09:46)
[2018-06-05] MEDS ORDERED: NS 100 ML IV 100 ML with VENOFER 100 MG IV NR ×2 (13:00)
[2018-06-05 13:28] VITALS: BMI 33.5
[2018-06-05] MEDS: ARICEPT TAB 10 MG PO SCH (13:58)
[2018-06-05] MEDS: FOLIC ACID TAB 1 MG PO SCH (13:59)
[2018-06-05] MEDS: PROTONIX TAB 40 MG PO SCH ×2 (13:59→20:55)
[2018-06-05] MEDS: CORDARONE TAB 200 MG PO SCH (13:59)
[2018-06-05] MEDS: PEPCID TAB 20 MG PO SCH ×2 (13:59→20:54)
[2018-06-05] MEDS: HEMOCYTE-PLUS PO SCH ×2 (13:59→21:00)
[2018-06-05] MEDS ORDERED: PATIENT'S HOME MEDICATION (Ferrous Sulfate [Ferrous Sulfate] 1 TAB) PO SCH (14:00)
[2018-06-05] MEDS: SINEMET (PLAIN) 25/250 MG PO SCH ×2 (14:00→21:00)
[2018-06-05] MEDS: ULTRAM PO SCH ×2 (14:00→21:00)
[2018-06-05] MEDS: NEURONTIN CAP 300 MG PO SCH ×2 (14:00→21:00)
[2018-06-05] MEDS ORDERED: NS 100 ML IV 100 ML IV ONE (15:29)
[2018-06-05] MEDS ORDERED: ROBITUSSIN DM PO PRN (16:11)
[2018-06-05 16:42] LABS: HEMATOCRIT 25.5 % (42.0-54.0); HEMOGLOBIN 8.7 g/dL (13.5-18.0)
[2018-06-06] MEDS: VANCOMYCIN HCL PO SCH ×2 (02:27→09:00)
[2018-06-06] MEDS: HEMOCYTE-PLUS PO SCH (05:25)
[2018-06-06] MEDS: NEURONTIN CAP 300 MG PO SCH (05:25)
[2018-06-06] MEDS: SINEMET (PLAIN) 25/250 MG PO SCH (05:26)
[2018-06-06] MEDS: ULTRAM PO SCH (05:26)
[2018-06-06] MEDS ORDERED: ZOFRAN INJ 4 MG VIAL IVP PRN (05:48)
[2018-06-06] MEDS: MAG-OX TAB PO SCH (06:05)
[2018-06-06 06:10] LABS: BASOPHILS % (AUTO) 0.8 % (0.2-1.0); EOSINOPHILS # (AUTO) 0.2 x10^3/uL (0.0-0.2); EOSINOPHILS % (AUTO) 5.4 % (0.9-2.9); HEMOGLOBIN 9.2 g/dL (13.5-18.0); LYMPHOCYTES # (AUTO) 0.4 X10^3/uL (1.3-2.9); LYMPHOCYTES % (AUTO) 14.1 % (21.0-51.0); MEAN CORPUSCULAR HEMOGLOBIN 29.4 pg (27.0-34.0); MEAN CORPUSCULAR HGB CONC 33.9 g/dL (33.0-35.0); MEAN CORPUSCULAR VOLUME 86.6 fL (80.0-100.0); MEAN PLATELET VOLUME 7.8 fL (7.4-11.0); MONOCYTES # (AUTO) 0.3 x10^3/uL (0.3-0.8); MONOCYTES % (AUTO) 8.9 % (0.0-13.0); NEUTROPHILS # (AUTO) 2.2 x10^3/uL (2.2-4.8); NEUTROPHILS % (AUTO) 70.8 % (42.0-75.0); PLATELET COUNT 163 X10^3/uL (150.0-450.0); RED BLOOD COUNT 3.12 X10^6/uL (4.7-6.0); RED CELL DISTRIBUTION WIDTH 16.2 % (11.6-16.5); WHITE BLOOD COUNT 3.1 X10^3/uL (3.6-10.0)
[2018-06-06 06:30] LABS: ALANINE AMINOTRANSFERASE 10 Units/L (12-78); ALBUMIN 2.1 g/dL (3.4-5.0); ALKALINE PHOSPHATASE 89 Units/L (46-116); ASPARTATE AMINO TRANSFERASE 27 Units/L (15-37); BLOOD UREA NITROGEN 14 mg/dL (7-18); CALCIUM 7.7 mg/dL (8.5-10.1); CARBON DIOXIDE 23.2 mmol/L (21-32); CHLORIDE 108 mmol/L (98-107); COR CA(FOR HYPOALB) 9.2 mg/dL (8.5-10.1); COR NA(FOR HYPERGLY) 141 mmol/L (136-145); CREATININE 1.46 mg/dL (0.70-1.30); SODIUM 141 mmol/L (136-145); TOTAL PROTEIN 5.6 g/dL (6.4-8.2); eGFR NON BLACK RACES 51 (>60)
[2018-06-06] MEDS ORDERED: NS 100 ML IV 100 ML with VENOFER 100 MG IV NR ×2 (08:00)
[2018-06-06] MEDS: ARICEPT TAB 10 MG PO SCH (09:00)
[2018-06-06] MEDS: FOLIC ACID TAB 1 MG PO SCH (09:00)
[2018-06-06] MEDS: PROTONIX TAB 40 MG PO SCH (09:00)
[2018-06-06] MEDS: CORDARONE TAB 200 MG PO SCH (09:00)
[2018-06-06] MEDS: PEPCID TAB 20 MG PO SCH (09:00)
[2018-06-06] MEDS ORDERED: NS 100 ML IV 100 ML IV ONE (09:01)
[2018-06-06] MEDS: DUONEB 0.5 MG/3 MG NEB SCH (09:02)
[2018-06-06] MEDS ORDERED: VENOFER IV ONE (09:30)
[2018-06-06 10:00] VITALS: BP 104/61
[2018-06-14 07:18] LABS: AMIODARONE + METAB 0.6
== END 2018-06-06 11:50 | disposition home or self-care (01) | DRG 812 ==
LOC: MED/SURG 14:48
PROVIDERS: ADMIT Obstetrics & Gynecology Obstetrics; ATTEND Obstetrics & Gynecology Obstetrics
DX: D64.89 Other specified anemias; R10.84 Generalized abdominal pain; A04.72 Enterocolitis due to Clostridium difficile, not specified as recurrent; E11.65 Type 2 diabetes mellitus with hyperglycemia
CPT/HCPCS: 36415; 36430; 71010; 71045; 74022; 80048; 80053; 80076; 80299; 82270; 82607; 82728; 82746; 83036; 83540; 83735; 84443; 84466; 85014; 85018; 85025; 86850; 86900; 86901; 86922; 87045; 87338; 87427; 87449; 87493; 87899; 93005; 93010; 94640; 94760; A4222; P9016; S0028; J1756; J1815; J1940; J2405; J7040; J7050; J7620

== ENCOUNTER 2018-11-02 06:00 | Inpatient (IN) ==
[2018-11-02 06:25] VITALS: BMI 29.7
[2018-11-02 06:56] LABS: BASOPHILS % (AUTO) 0.7 % (0.2-1.0); EOSINOPHILS % (AUTO) 0.7 % (0.9-2.9); HEMATOCRIT 34.7 % (42.0-54.0); HEMOGLOBIN 10.7 g/dL (13.5-18.0); LYMPHOCYTES # (AUTO) 0.7 X10^3/uL (1.3-2.9); LYMPHOCYTES % (AUTO) 10.3 % (21.0-51.0); MEAN CORPUSCULAR HEMOGLOBIN 22.3 pg (27.0-34.0); MEAN CORPUSCULAR VOLUME 71.8 fL (80.0-100.0); MEAN PLATELET VOLUME 8.2 fL (7.4-11.0); MONOCYTES # (AUTO) 0.7 x10^3/uL (0.3-0.8); MONOCYTES % (AUTO) 10.6 % (0.0-13.0); NEUTROPHILS # (AUTO) 5.2 x10^3/uL (2.2-4.8); NEUTROPHILS % (AUTO) 77.7 % (42.0-75.0); PLATELET COUNT 233 X10^3/uL (150.0-450.0); RED BLOOD COUNT 4.83 X10^6/uL (4.7-6.0); RED CELL DISTRIBUTION WIDTH 18.1 % (11.6-16.5); WHITE BLOOD COUNT 6.7 X10^3/uL (3.6-10.0)
[2018-11-02] MEDS ORDERED: NS 1000 ML 1,000 ML IV SCH (07:00)
[2018-11-02] MEDS ORDERED: MORPHINE SULFATE INJ 4 MG IVP ONE ×2 (07:02→07:47)
[2018-11-02] MEDS ORDERED: ASPIRIN PO ONE (07:04)
[2018-11-02] MEDS ORDERED: ASPIRIN ONE (07:04)
[2018-11-02] MEDS ORDERED: MORPHINE SULFATE INJ 4 MG ONE ×2 (07:04→07:50)
[2018-11-02 07:06] LABS: BLOOD UREA NITROGEN 39 mg/dL (7-18); CALCIUM 8.7 mg/dL (8.5-10.1); CHLORIDE 99 mmol/L (98-107); COR NA(FOR HYPERGLY) 137 mmol/L (136-145); CREATININE 2.21 mg/dL (0.70-1.30); SODIUM 135 mmol/L (136-145); TROPONIN I 0.03 ng/mL (0-1.5); eGFR NON BLACK RACES 32 (>60)
[2018-11-02 07:10] LABS: ALANINE AMINOTRANSFERASE 18 Units/L (12-78); ALBUMIN 2.6 g/dL (3.4-5.0); ALKALINE PHOSPHATASE 150 Units/L (46-116); ASPARTATE AMINO TRANSFERASE 33 Units/L (15-37); CKMB % 2.3 % (<4); COR CA(FOR HYPOALB) 9.8 mg/dL (8.5-10.1); CREATINE KINASE 43 Units/L (39-308); CREATINE KINASE MB < 1.0 ng/mL (0-4.0); TOTAL PROTEIN 6.7 g/dL (6.4-8.2)
[2018-11-02] MEDS ORDERED: ZOFRAN INJ 4 MG VIAL ONE (07:10)
--- NOTE | 2018-11-02 07:11 | DR.SOBA ---
HPI Time Seen Time Seen by Provider: 11/02/18 06:31 Primary Care Physician Primary Care Physician: KIM CREWS Complaints Chief Complaint Doctors Comments: Patient fell three days ago down 3-4 steps and injured his right shoulder. He states that he does not have chest pain. He states that he is a candidate for a kidney/liver transplant, biopsy will be done next month. Chief Complaint:: SHORTNESS OF BREATH O/S 1 HR AGO. "I FELL ON THURSDAY, BUT THIS HAS NOTHING TO DO WITH THAT. I JUST FEEL LIKE I CAN NOT TAKE A DEEP BREATH." Self Treatment fo Chief Complaint: TRAMADOL AT HOME-DID NOT HELP Reviewed Nurses Notes Reviewed: Yes Source History Provided: Patient Mode of Arrival Mode of Arrival: Ambulatory Timing Onset of Chief Complaint: 11/02/18 Duration Duration: Unknown and Days (3) Context PE Risk Factors:: Recent Trauma (fell down 3 steps) PMH PMH Past Medical History: Yes Past Medical History: Alzheimers, Anemia, Cirrhosis, Dementia, GERD and Kidney Stones Past Medical History Comment: ATRIAL FIBRILLATION, EARLY STAGES OF ALZHEIMERS AND PARKINSONS DISEASE, CHRONIC BACK PAIN. COMPLETE KIDNEY FAILURE OF LEFT KIDNEY-ON TRANSPLANT LIST FOR KIDNEY AND LIVER TRANSPLANT. Past Surgical History: Yes Surgical History: Angioplasty/Stents, Cholecystectomy, Ortho Surgery, Lithotripsy and Other Past Surgical History Comment: BACK SURGERY Family History History of Family Medical Conditions: Yes Family Medical History: Diabetes Mellitus, Cancer, [place], Coronary Artery Disease, Heart Failure and Hypertension Social History Does patient currently use any type of tobacco product: No Have you used tobacco products in the last 12 months: No Type of Tobacco Use: None Does any household member use tobacco: No Alcohol Use: None Do you use any recreational Drugs:: No Lives With: Spouse Lives Where: Home infectious screening Have you traveled outside the country in the last 6 months?: No Isolation: Standard PE Vital Signs Vitals: Temperature 97.6 F Pulse Rate [Apical] 120 Pulse Rate 121 Respiratory Rate 24 Blood Pressure [Left Arm] 101/56 Blood Pressure [Right Arm] 106/62 Blood Pressure 103/61 O2 Sat by Pulse Oximetry 97 Head Head Exam: Normal Inspection, Atraumatic and Normocephalic Eyes Eye exam: Normal Appearance, PERRL and EOMI ENT ENT Exam: Normal Exam, Normal Oropharynx, Normal External Ear Exam and Mucous Membranes Moist Neck Neck Exam: Normal Inspection and Full ROM Chest Chest Inspection: Normal Inspection and Symmetric Chest Wall Rise; negative Tenderness Respiratory Respiratory Exam: Normal Lung Sounds Bilat; negative Accessory Muscle Use Respiratory Exam: Bilateral: Clear to Auscultation Cardiovascular Cardiovascular Exam: Regular Rate and Tachycardia Abdominal Exam Abdominal Exam: Normal Inspection, Normal Bowel Sounds and Soft Extremities Extremities Exam: Tenderness (right shoulder) Back Back Exam: Normal Inspection Neurologic Neurological Exam: Alert, Oriented X3 and CN II-XII Intact COURSE Treatment Treatment: Morphine for shoulder pain 4mg IV Consultation Called: 07:30 Consultation Comments: Dr. Sorenson agreed to admit for further treatment and evaluation ROR Labs Reviewed Laboratory Results Reviewed?: Yes Result Diagrams: 11/02/18 06:36 11/02/18 06:36 Laboratory: WBC 6.7 X10^3/uL (3.6-10.0) 11/02/18 06:36 RBC 4.83 X10^6/uL (4.7-6.0) 11/02/18 06:36 Hgb 10.7 g/dL (13.5-18.0) L 11/02/18 06:36 Hct 34.7 % (42.0-54.0) L 11/02/18 06:36 MCV 71.8 fL (80.0-100.0) L 11/02/18 06:36 MCH 22.3 pg (27.0-34.0) L 11/02/18 06:36 MCHC 31.0 g/dL (33.0-35.0) L 11/02/18 06:36 RDW 18.1 % (11.6-16.5) H 11/02/18 06:36 Plt Count 233 X10^3/uL (150.0-450.0) 11/02/18 06:36 Plt Count Comment Adequate (ADEQUATE) 11/02/18 06:36 MPV 8.2 fL (7.4-11.0) 11/02/18 06:36 Neut % (Auto) 77.7 % (42.0-75.0) H 11/02/18 06:36 Lymph % (Auto) 10.3 % (21.0-51.0) L 11/02/18 06:36 [place] % (Auto) 10.6 % (0.0-13.0) 11/02/18 06:36 Eos % (Auto) 0.7 % (0.9-2.9) L 11/02/18 06:36 Baso % (Auto) 0.7 % (0.2-1.0) 11/02/18 06:36 Neut # (Auto) 5.2 x10^3/uL (2.2-4.8) H 11/02/18 06:36 Lymph # (Auto) 0.7 X10^3/uL (1.3-2.9) L 11/02/18 06:36 [place] # (Auto) 0.7 x10^3/uL (0.3-0.8) 11/02/18 06:36 Eos # (Auto) 0.0 x10^3/uL (0.0-0.2) 11/02/18 06:36 Baso # (Auto) 0.0 X10^3/uL (0.0-0.1) 11/02/18 06:36 Absolute Nucleated RBC 0.0 /100WBC 11/02/18 06:36 Plt Morphology Comment Normal (NORMAL) 11/02/18 06:36 RBC Morphology Abnormal (NORMAL) 11/02/18 06:36 Hypochromasia 1+ A 11/02/18 06:36 INR Target Range - 11/02/18 06:36 INR 1.37 (0.8-1.3) H 11/02/18 06:36 APTT 31.7 SECONDS (22.9-36.5) 11/02/18 06:36 PTT Comment - 11/02/18 06:36 D-Dimer 1340 ng/mL (0-400) H* 11/02/18 06:36 Sodium 135 mmol/L (136-145) L 11/02/18 06:36 Corrected Sodium 137 mmol/L (136-145) 11/02/18 06:36 Potassium 3.9 mmol/L (3.5-5.1) 11/02/18 06:36 Chloride 99 mmol/L (98-107) 11/02/18 06:36 Carbon Dioxide 24.0 mmol/L (21-32) 11/02/18 06:36 BUN 39 mg/dL (7-18) H 11/02/18 06:36 Creatinine 2.21 mg/dL (0.70-1.30) H 11/02/18 06:36 Est GFR (MDRD) Af Amer 38 (>60) L 11/02/18 06:36 Est GFR (MDRD) Non-Af 32 (>60) L 11/02/18 06:36 Glucose 164 mg/dL (65-99) H 11/02/18 06:36 Calcium 8.7 mg/dL (8.5-10.1) 11/02/18 06:36 Corrected Calcium 9.8 mg/dL (8.5-10.1) 11/02/18 06:36 Magnesium 2.0 mg/dL (1.7-2.9) 11/02/18 06:36 Total Bilirubin 2.00 mg/dL (0.2-1.0) H 11/02/18 06:36 AST 33 Units/L (15-37) 11/02/18 06:36 ALT 18 Units/L (12-78) 11/02/18 06:36 Alkaline Phosphatase 150 Units/L (46-116) H 11/02/18 06:36 Creatine Kinase 43 Units/L (39-308) 11/02/18 06:36 CK-MB (CK-2) < 1.0 ng/mL (0-4.0) 11/02/18 06:36 CK/CKMB % Calc 2.3 % (<4) 11/02/18 06:36 Troponin I 0.03 ng/mL (0-1.5) 11/02/18 06:36 Total Protein 6.7 g/dL (6.4-8.2) 11/02/18 06:36 Albumin 2.6 g/dL (3.4-5.0) L 11/02/18 06:36 Globulin 4.1 g/dL (2.5-4.5) 11/02/18 06:36 Albumin/Globulin Ratio 0.6 Ratio (1.1-2.1) L 11/02/18 06:36 Other Results Comments: Right shoulder: the clavicle, AC joint, scapula, glenohumeral joint and proximal humerus are intact. There is moderately severe AC joint degenerative joint disease present. No fracture, lytic, or blastic lesion is identified. The visualized right ribs appear intact. Impression: No definite acute traumatic abnormality. Moderately severe AC joint degenerative joint disease. XRAY XRAY Interpreted by: Radiologist Diagnosis Discharge Problem: Suspected pulmonary embolism, Contusion of right shoulder, Renal failure
[2018-11-02] MEDS ORDERED: ZOFRAN INJ 4 MG VIAL IVP ONE (07:12)
[2018-11-02 07:17] LABS: HYPOCHROMASIA 1+; PLATELET MORPHOLOGY COMMENT NORMAL (NORMAL)
--- NOTE | 2018-11-02 07:33 | RAD ---
HISTORY: Fall, right shoulder pain, decreased range of motion Study: Right shoulder two views Comparison: None Findings: The clavicle, AC joint, scapula, glenohumeral joint and proximal humerus are intact. There is moderately severe AC joint degenerative joint disease present. No fracture, lytic, or blastic lesion is identified. The visualized right ribs appear intact. IMPRESSION: No definite acute traumatic abnormality Moderately severe AC joint degenerative joint disease Reported By:
--- NOTE | 2018-11-02 09:03 | RAD ---
HISTORY: Acute shortness of breath. Study: Portable chest. Comparison: Chest x-ray dated September 07, 2018. Findings: The trachea is midline. The cardiac silhouette is enlarged with prominent perihilar vasculature, cephalization of vessels, diffuse alveolar/interstitial markings, and right greater than left pleural effusions. No obvious pneumothorax. The bony thorax is unremarkable. IMPRESSION: Constellation of findings likely representing pulmonary edema secondary to congestive heart failure. Underlying infiltrate not entirely excluded. Reported By:
[2018-11-02] MEDS: MORPHINE SULFATE PCA 30 MG IVP PRN (09:08)
[2018-11-02] MEDS: NS 1000 ML 1,000 ML IV SCH ×3 (10:49→22:18)
[2018-11-02] MEDS ORDERED: DUONEB 0.5 MG/3 MG NEB PRN (10:54)
[2018-11-02] MEDS: LASIX IVP SCH ×2 (11:23→20:54)
[2018-11-02 13:01] LABS: CKMB % 4.4 % (<4); CREATINE KINASE 23 Units/L (39-308); CREATINE KINASE MB < 1.0 ng/mL (0-4.0); TROPONIN I 0.03 ng/mL (0-1.5)
[2018-11-02 13:22] LABS: BILIRUBIN,URINE NEGATIVE (NEGATIVE); BLOOD/HEMOGLOBIN,URINE NEGATIVE (NEGATIVE); GLUCOSE, URINE NEGATIVE (NEGATIVE); KETONES,URINE NEGATIVE (NEGATIVE); LEUKOCYTE ESTERASE ,URINE NEGATIVE (NEGATIVE); NITRITES,URINE NEGATIVE (NEGATIVE); PROTEIN,URINE 1+ (NEGATIVE); UROBILINOGEN,URINE NORMAL (NORMAL)
[2018-11-02 13:27] LABS: APPEARANCE,URINE CLEAR (CLEAR); COLOR,URINE YELLOW (YELLOW)
[2018-11-02 13:29] LABS: BACTERIA,URINE TRACE /HPF (NEGATIVE); MUCUS,URINE MODERATE /HPF (NEGATIVE); RBC,URINE 0-2 /HPF (NONE SEEN); SQUAMOUS EPITHELIAL CELL,UR FEW /HPF (NEGATIVE)
[2018-11-02] MEDS: XOPENEX 1.25 MG/3 ML NEBULE NEB PRN (17:02)
[2018-11-02] MEDS: HumuLIN R SUBCUT PRN ×2 (17:22→20:54)
[2018-11-02 18:54] LABS: CKMB % 7.1 % (<4); CREATINE KINASE 14 Units/L (39-308); CREATINE KINASE MB < 1.0 ng/mL (0-4.0); TROPONIN I < 0.02 ng/mL (0-1.5)
[2018-11-02 21:07] LABS: BILIRUBIN,URINE NEGATIVE (NEGATIVE); BLOOD/HEMOGLOBIN,URINE NEGATIVE (NEGATIVE); GLUCOSE, URINE NEGATIVE (NEGATIVE); KETONES,URINE NEGATIVE (NEGATIVE); LEUKOCYTE ESTERASE ,URINE 1+ (NEGATIVE); NITRITES,URINE NEGATIVE (NEGATIVE); PROTEIN,URINE 1+ (NEGATIVE); UROBILINOGEN,URINE NORMAL (NORMAL)
[2018-11-02 21:29] LABS: APPEARANCE,URINE CLEAR (CLEAR); BACTERIA,URINE TRACE /HPF (NEGATIVE); COLOR,URINE YELLOW (YELLOW); RBC,URINE 0-2 /HPF (NONE SEEN); SQUAMOUS EPITHELIAL CELL,UR RARE /HPF (NEGATIVE)
[2018-11-02 21:30] LABS: AMORPHOUS SEDIMENT,UR 1+ /HPF (NEGATIVE); HYALINE CASTS, URINE FEW /LPF (NEGATIVE)
--- NOTE | 2018-11-02 21:37 | DR.H&P ---
H&P - History & Physical for Day of: H&P Date: 11/02/18 - Chief Complaint Chief Complaint: SOB, RIGHT SHOULDER PAIN - History of Present Illness History of Present Illness: IS A 67 YEAR OLD PATIENT OF [facility] WHO PRESENTED TO THE ER WITH COMPLAINTS OF SHORTNESS OF BREATH AND RIGHT SHOULDER PAIN. PATIENT REPORTS THAT HE FELL ON THURSDAY, BUT DOESNT FEEL LIKE HIS SHOULDER PAIN IS RELATED TO THE SHORTNESS OF BREATH. HE STATES THAT HE IS A CANDIDATE FOR A KIDNEY/LIVER TRANSPLANT AND WILL BE HAVING A BIOPSY DONE IN A FEW WEEKS. ON ARRIVAL, VITALS WERE 97.7-837-37-100%RA-101/63. LABS WERE OBTAINED. ABNORMAL LAB VALUES INCLUDE THE FOLLOWING: HGB 10.7, HCT 34.7, INR 1.37, D-DIMER 1340, SODIUM 135, BUN 39, CREATININE 2.21, GLUCOSE 164, TOTAL BILI 2.00, ALK PHOS 150, ALBUMIN 2.6. A RIGHT SHOULDER XRAY WAS OBTAINED AND REVEALED: No definite acute traumatic abnormality. Moderately severe AC joint degenerative joint disease. A CHEST XRAY WAS OBTAINED AND REVEALED: Constellation of findings likely representing pulmonary edema secondary to congestive heart failure. Underlying infiltrate not entirely excluded. EKG REVEALED ATRIAL FLUTTER WITH HR 117. HE WAS GIVEN MORPHINE 4MG IV X 2 DOSES, ZOFRAN 4MG IV X 1, AND STARTED ON NORMAL SALINE IN THE ER. HE WAS ADMITTED FOR FURTHER EVALUATION AND TREATMENT OF CHF, SHORTNESS OF BREATH, AND RIGHT SHOULDER PAIN. TODAY, WE WILL OBTAIN AN ECHO, SERIAL CARDIAC ENZYMES AND EKGS, START LASIX 20MG IV Q12H, AND PLACE HIM ON THE BIPAP. HE IS ON A MORPHINE YARDER ENGINEER FOR INTRACTABLE SHOULDER PAIN. OTHERWISE, WE WILL FOLLOW UP WITH AM LABS AND CONTINUE TO MONITOR. - Past Medical History Past Medical History: Alzheimers, Anemia, Cirrhosis, Dementia, GERD, Kidney Stones, Liver Disease Additional Medical History: KIDNEY DISEASE, LIVER DISEASE - Past Surgical History Surgical History: Angioplasty/Stents, Cholecystectomy, Ortho Surgery, Lithotripsy, Other - Family History Family Medical History: Diabetes Mellitus, Cancer, [place], Coronary Artery Disease, Heart Failure, Hypertension - Social History Does patient currently use any type of tobacco product: No Have you used tobacco products in the last 12 months: No Type of Tobacco Use: None Does any household member use tobacco: No Alcohol Use: None Drug Use: None - Medications Home Medications: lisinopril Allergy (Verified 11/02/18 06:26) CONTINUE taking the following medications citalopram 20 mg PO QDAY 11/02/18 [History] furosemide 80 mg PO BID 11/02/18 [History] spironolactone 25 mg PO QDAY 11/02/18 [History] - Review of Systems Constitutional: Weakness Eyes: No Symptoms Reported ENT: No Symptoms Reported Respiratory: See HPI, Shortness of Breath, SOB with Excertion Cardiovascular: Edema (BLE ) Gastrointestinal: No Symptoms Reported Genitourinary: No Symptoms Reported Musculoskeletal: Shoulder Pain (RIGHT SHOULDER PAIN ) Skin: No Symptoms Reported Neurological: Weakness - Physical Exam Vital Signs: Temperature 99.2 F Pulse Rate [Apical] 122 Pulse Rate 122 Respiratory Rate 22 Blood Pressure [Left Arm] 105/62 Blood Pressure [Right Arm] 106/62 Blood Pressure 103/61 O2 Sat by Pulse Oximetry 94 Oriented: Normal Eyes: Normal Ear: Normal Nose: Normal Throat: Normal Respiratory: Diminished Throughout Cardiovascular: Tachycardia, Edema (BLE 1+ PITTING EDEMA ). negative: S3, S4, Murmur : Normal Auscultation: Bowel Sounds: Normal Palpation: Normal Tenderness: Normal Skin: Normal Musculoskeletal: Right, Shoulder, Tender Psychiatric: Normal Mood Description: Calm Affect: Normal Speech Pattern: Clear - Assessment/Plan (1) CHF (congestive heart failure) Qualifiers: Heart failure chronicity: acute on chronic Status: Acute Plan: BIPAP, LASIX 20MG IV BID, CONTINUE TO MONITOR (2) Cirrhosis of liver Qualifiers: Hepatic cirrhosis type: unspecified hepatic cirrhosis Ascites presence: unspecified Qualified Code(s): K74.60 - Unspecified cirrhosis of liver Status: Acute (3) Contusion of right shoulder Qualifiers: Encounter type: initial encounter Qualified Code(s): S40.011A - Contusion of right shoulder, initial encounter Status: Acute Plan: MORPHINE YARDER ENGINEER, CONTINUE TO MONITOR (4) Renal failure Qualifiers: Renal failure chronicity: unspecified chronicity Qualified Code(s): N19 - Unspecified kidney failure Status: Acute - Allergies Allergies/Adverse Reactions: Allergies Allergy/AdvReac Type Severity Reaction Status Date / Time lisinopril Allergy Verified 11/02/18 06:26
[2018-11-03] MEDS: SNACK - Diabetic Appropriate PO SCH ×2 (02:03→20:00)
[2018-11-03] MEDS: MORPHINE SULFATE PCA 30 MG IVP PRN (03:54)
[2018-11-03 05:35] LABS: BASOPHILS # (AUTO) 0.1 X10^3/uL (0.0-0.1); BASOPHILS % (AUTO) 0.4 % (0.2-1.0); HEMATOCRIT 32.7 % (42.0-54.0); HEMOGLOBIN 9.9 g/dL (13.5-18.0); LYMPHOCYTES # (AUTO) 0.5 X10^3/uL (1.3-2.9); LYMPHOCYTES % (AUTO) 2.4 % (21.0-51.0); MEAN CORPUSCULAR HEMOGLOBIN 22.3 pg (27.0-34.0); MEAN CORPUSCULAR HGB CONC 30.4 g/dL (33.0-35.0); MEAN CORPUSCULAR VOLUME 73.3 fL (80.0-100.0); MEAN PLATELET VOLUME 8.2 fL (7.4-11.0); MONOCYTES # (AUTO) 2.1 x10^3/uL (0.3-0.8); MONOCYTES % (AUTO) 10.1 % (0.0-13.0); NEUTROPHILS # (AUTO) 18.5 x10^3/uL (2.2-4.8); NEUTROPHILS % (AUTO) 87.1 % (42.0-75.0); PLATELET COUNT 308 X10^3/uL (150.0-450.0); RED BLOOD COUNT 4.46 X10^6/uL (4.7-6.0); RED CELL DISTRIBUTION WIDTH 17.9 % (11.6-16.5)
[2018-11-03] MEDS: HumuLIN R SUBCUT PRN (05:42)
[2018-11-03] MEDS: XOPENEX 1.25 MG/3 ML NEBULE NEB PRN ×4 (05:45→21:18)
[2018-11-03] MEDS: NS 1000 ML 1,000 ML IV SCH ×2 (05:45→19:53)
[2018-11-03 05:48] LABS: ALBUMIN 2.1 g/dL (3.4-5.0); CALCIUM 8.2 mg/dL (8.5-10.1); CARBON DIOXIDE 18.9 mmol/L (21-32); COR CA(FOR HYPOALB) 9.7 mg/dL (8.5-10.1); CREATININE 2.77 mg/dL (0.70-1.30); TOTAL PROTEIN 5.8 g/dL (6.4-8.2)
[2018-11-03 06:04] LABS: WHITE BLOOD COUNT 21.2 X10^3/uL (3.6-10.0)
[2018-11-03 06:05] LABS: BAND NEUTROPHILS % 3 % (0-10); HYPOCHROMASIA 1+; PLATELET MORPHOLOGY COMMENT NORMAL (NORMAL)
--- NOTE | 2018-11-03 07:24 | RAD ---
HISTORY: Shortness of breath Study: Chest AP portable Comparison: 11/02/2018 Findings: Patient is rotated to the left. The heart is enlarged. No definite congestive heart failure is present on today's examination. Right pleural effusion is present. No definite acute infiltrates are identified. The bony thorax is unremarkable. IMPRESSION: Moderate cardiomegaly without definite congestive heart failure Right pleural effusion Reported By:
[2018-11-03] MEDS: LASIX IVP SCH ×2 (08:29→20:06)
[2018-11-03] MEDS ORDERED: SALINE 3% 15 ML NEB TX NEB ONE (12:04)
[2018-11-03 12:43] LABS: STREP A BY PCR NOT DETECTED (NOT DETECT)
[2018-11-03] MEDS ORDERED: PHARMACY CONSULT - DOSE _____ XX SCH (17:00)
--- NOTE | 2018-11-03 18:11 | US ---
History: Evaluate abdominal distension Exam: Limited abdominal ultrasound for ascites Comparison: None Technique: Multiple grayscale and color flow Doppler images of the abdomen were obtained. Findings: There is moderate ascites seen surrounding the liver and spleen and extending into the lower abdomen with ascites seen in all 4 quadrants of the abdomen. IMPRESSION: Moderately severe abdominal and pelvic ascites. Reported By:
[2018-11-03] MEDS ORDERED: LEVAQUIN PREMIX IV 500 MG 500 MG/100 ML BAG IV ONE (19:00)
[2018-11-03] MEDS ORDERED: FORTAZ or TAZICEF VIAL INJ IVP SCH (20:00)
[2018-11-03] MEDS: CELEXA PO SCH (22:40)
[2018-11-03] MEDS: SINEMET (PLAIN) 25/250 MG PO SCH (22:40)
[2018-11-03] MEDS: ALDACTONE TAB 25 MG PO SCH (22:44)
[2018-11-03] MEDS: ULTRAM PO SCH (22:44)
[2018-11-04] MEDS: XOPENEX 1.25 MG/3 ML NEBULE NEB PRN ×2 (00:45→13:55)
[2018-11-04] MEDS: NS 1000 ML 1,000 ML IV SCH ×4 (01:13→18:24)
[2018-11-04] MEDS: SINEMET (PLAIN) 25/250 MG PO SCH ×2 (05:10→14:32)
[2018-11-04 05:42] LABS: BASOPHILS % (AUTO) 0.2 % (0.2-1.0); HEMATOCRIT 31.7 % (42.0-54.0); HEMOGLOBIN 9.6 g/dL (13.5-18.0); LYMPHOCYTES # (AUTO) 0.5 X10^3/uL (1.3-2.9); LYMPHOCYTES % (AUTO) 2.2 % (21.0-51.0); MEAN CORPUSCULAR HEMOGLOBIN 22.4 pg (27.0-34.0); MEAN CORPUSCULAR HGB CONC 30.2 g/dL (33.0-35.0); MEAN CORPUSCULAR VOLUME 74.3 fL (80.0-100.0); MEAN PLATELET VOLUME 8.2 fL (7.4-11.0); MONOCYTES # (AUTO) 1.9 x10^3/uL (0.3-0.8); NEUTROPHILS # (AUTO) 18.8 x10^3/uL (2.2-4.8); NEUTROPHILS % (AUTO) 88.6 % (42.0-75.0); PLATELET COUNT 342 X10^3/uL (150.0-450.0); RED BLOOD COUNT 4.27 X10^6/uL (4.7-6.0); RED CELL DISTRIBUTION WIDTH 18.2 % (11.6-16.5); WHITE BLOOD COUNT 21.3 X10^3/uL (3.6-10.0)
[2018-11-04 05:47] LABS: ALBUMIN 1.9 g/dL (3.4-5.0); CALCIUM 8.6 mg/dL (8.5-10.1); CARBON DIOXIDE 16.6 mmol/L (21-32); COR CA(FOR HYPOALB) 10.3 mg/dL (8.5-10.1); CREATININE 4.04 mg/dL (0.70-1.30); TOTAL PROTEIN 5.6 g/dL (6.4-8.2)
[2018-11-04 05:58] LABS: BAND NEUTROPHILS % 1 % (0-10); HYPOCHROMASIA 1+; PLATELET MORPHOLOGY COMMENT NORMAL (NORMAL)
--- NOTE | 2018-11-04 07:03 | RAD ---
HISTORY: Shortness of breath Study: Chest AP portable Comparison: 11/03/2018 Findings: The heart is enlarged. No definite congestive heart failure is identified. Right pleural effusion is unchanged. No definite acute alveolar infiltrates are identified. The bony thorax is unremarkable. IMPRESSION: Continued moderate cardiomegaly without congestive heart failure No change right pleural effusion Reported By:
[2018-11-04] MEDS ORDERED: PEPCID TAB 20 MG PO SCH (09:00)
[2018-11-04] MEDS ORDERED: CORDARONE TAB 200 MG PO SCH (09:00)
[2018-11-04] MEDS ORDERED: ARICEPT TAB 10 MG PO SCH (09:00)
[2018-11-04] MEDS ORDERED: PROTONIX TAB 40 MG PO SCH (09:00)
[2018-11-04] MEDS: ULTRAM PO SCH ×2 (09:15→14:31)
[2018-11-04] MEDS: CELEXA PO SCH (09:52)
[2018-11-04] MEDS: LASIX IVP SCH (09:53)
[2018-11-04] MEDS: ALDACTONE TAB 25 MG PO SCH (09:54)
[2018-11-04] MEDS ORDERED: ALBUMIN HUMAN 25%- 100 ML 100 ML IV ONE ×2 (10:33→10:36)
[2018-11-04] MEDS ORDERED: ZOFRAN INJ 4 MG VIAL IVP PRN (10:43)
[2018-11-04 10:44] LABS: ABG HCO3 15.7 mmol/L (22-26)
[2018-11-04 10:45] LABS: ABG ALLEN TEST POS PT TOL WELL. CDN
[2018-11-04] MEDS ORDERED: ALBUMIN HUMAN 25%- 100 ML 100 ML IV SCH (11:00)
[2018-11-04] MEDS ORDERED: NS 1000 ML 1,000 ML with SODIUM BICARBONATE 8.4% INJ ADULT 50 ML IV ONE ×2 (11:27)
[2018-11-04] MEDS ORDERED: SODIUM BICARBONATE 8.4% INJ ADULT ONE (11:27)
[2018-11-04 11:39] LABS: LACTIC ACID 7.9 mmol/L (0.4-2.0)
[2018-11-04] MEDS ORDERED: NS 1000 ML 1,000 ML IV ONE (12:30)
[2018-11-04 12:36] LABS: CKMB % 0.8 % (<4); TROPONIN I 0.04 ng/mL (0-1.5)
[2018-11-04] MEDS ORDERED: D50W ABBOJECT SYR ONE (14:38)
[2018-11-04] MEDS ORDERED: D50W ABBOJECT SYR IV ONE (14:38)
[2018-11-04 14:51] LABS: ABG BASE EXCESS -11.9 mmol/L (-2.0-2.0)
[2018-11-04 14:52] LABS: ABG ALLEN TEST POS
[2018-11-04] MEDS ORDERED: MORPHINE SULFATE INJ 2 MG INJ ONE (15:19)
[2018-11-04] MEDS ORDERED: MORPHINE SULFATE INJ 2 MG INJ IVP ONE ×2 (15:24→18:09)
[2018-11-04] MEDS ORDERED: MORPHINE SULFATE INJ 2 MG INJ IVP PRN (15:45)
[2018-11-04] MEDS ORDERED: DIPRIVAN PREMIX 1 GRAM IV 1,000 MG/100 ML VIAL IV PRN (16:07)
[2018-11-04] MEDS ORDERED: DIPRIVAN PREMIX 1 GRAM IV 1,000 MG/100 ML VIAL ONE (16:12)
[2018-11-04] MEDS: DIPRIVAN VIAL 0 ML ONE ×2 (16:14→16:41)
[2018-11-04] MEDS ORDERED: D5W 250 ML IV 250 ML IV ONE (16:21)
[2018-11-04] MEDS ORDERED: LEVOPHED INJ ONE (16:22)
[2018-11-04] MEDS ORDERED: LEVOPHED INJ 8 MG in D5W 250 ML IV 242 ML IV PRN (16:37)
--- NOTE | 2018-11-04 16:50 | RAD ---
HISTORY: Tube placement Study: Portable chest Comparison: 06/05/2018 Findings: The heart is mildly enlarged but unchanged. The pulmonary vessels are engorged and ill-defined centrally . There are perihilar opacities extending into the right lung base . There is an ET tube in place with the tip in the mid to distal trachea . There is a small right pleural effusion. No pneumothorax is seen. IMPRESSION: Status post ET tube placement in good position. Mild cardiomegaly and moderate pulmonary edema with hazy perihilar and right basilar opacities . Small right pleural effusion. Reported By:
[2018-11-04 17:25] LABS: ABG BASE EXCESS -15.4 mmol/L (-2.0-2.0)
[2018-11-04 17:26] LABS: ABG HCO3 13.3 mmol/L (22-26)
[2018-11-04] MEDS ORDERED: NS 500 ML IV 500 ML IV ONE (18:04)
[2018-11-04] MEDS ORDERED: HEPARIN SODIUM INJ 5000 UNITS ONE (18:05)
[2018-11-04 18:11] LABS: LACTIC ACID 8.7 mmol/L (0.4-2.0)
[2018-11-04 18:15] LABS: CKMB % 0.9 % (<4); CREATINE KINASE MB 3.7 ng/mL (0-4.0); TROPONIN I 0.05 ng/mL (0-1.5)
--- NOTE | 2018-11-04 19:23 | PCM.PROG ---
Progress Note - Progress Note for Day of Date of Exam: 11/03/18 - Subjective Subjective: WAS ADMITTED FOR TREATMENT OF CONGESTIVE HEART FAILURE, CIRRHOSIS, RENAL FAILURE, AND A RIGHT SHOULDER CONTUSION. TODAY, HE IS ALERT AND ORIENTED, LYING IN BED ON MORNING ROUNDS. HE CONTINUES WITH PERSISTENT SHORTNESS OF BREATH, WEAKNESS, AND ALSO REPORTS ABDOMINAL PAIN TODAY. HE REFUSED USE OF THE BIPAP YESTERDAY. HE REPORTS THAT THERE IS AN AREA OF CONCERN ON HIS LIVER FOR WHICH HE IS SCHEDULED FOR A BIOPSY IN 2 WEEKS AT [facility]. ON EXAMINATION, HE IS NOTED TO BE TACHYCARDIC WITH HR IN THE 120S. BILATERAL LUNGS ARE NOTED WITH DIMINISHED LUNG SOUNDS THROUGHOUT. ABDOMEN IS ROUND/DISTENDED WITH HYPOACTIVE BOWEL SOUNDS NOTED IN ALL QUADRANTS. HE IS NOTED WITH 1+ PITTING EDEMA TO LOWER EXTREMITIES. HIS VITLAS THIS MORNING ARE 97.8-126-20-97%-97/60. LABS WERE OBTAINED. ABNORMAL LAB VALUES INCLUDE THE FOLLOWING: WBC INCREASED TO 21.2, RBC 4.46, HGB 9.9, HCT 32.7, SODIUM 133, CARBON DIOXIDE 18.9, BUN 45, CREATININE 2.77, GLUCOSE 183, CALCIUM 8.2, TOTAL BILI 2.30, ALK PHOS 123, BNP 300, TOTAL PROTEIN 5.8, ALBUMIN 2.1. WE OBTAINED A CHEST XRAY THIS MORNING. IT REVEALED: Moderate cardiomegaly without definite congestive heart failure. Right pleural effusion. AN ECHO WAS OBTAINED YESTERDAY AND REVEALED AN EJECTION FRACTION OF 50%. TODAY, WE WILL OBTAIN URINE CULTURES, BLOOD CULTURES, STREP SWAB, AND A FLU SWAB TO DETERMINE SOURCE OF INFECTION. AFTER CULTURES, WE WILL START FORTAZ IV AND LEVAQUIN IV. WE WILL ENCOURAGE HIM TO WEAR THE BIPAP AND WILL OBTAIN AN ABDOMEN ULTRASOUND TODAY. OTHERWISE, WE PLAN TO FOLLOW UP WITH AM LABS AND CONTINUE TO MONITOR. - Past Medical Family Social History Past Med/Fam/Surg Hx: No changes since H&P Allergies: Allergies lisinopril Allergy (Verified 11/02/18 06:26) - Review of Systems ROS: No change since H&P - Vital Signs and I&O's Vital Signs: Temperature 97.1 F Pulse Rate [Left Brachial] 122 Pulse Rate [Apical] 106 Pulse Rate 111 Respiratory Rate 16 Blood Pressure [Left Arm] 98/52 Blood Pressure [Right Arm] 106/62 Blood Pressure 103/61 O2 Sat by Pulse Oximetry 88 Intake and Output: Intake & Output 11/02/18 11/03/18 11/04/18 11/05/18 11:59 11:59 11:59 11:59 Intake Total 1445 / 1445 1221 / 1221 2010 Output Total 350 / 350 165 / 165 Balance 1095 / 1095 1056 / 1056 2010 - Physical Exam Oriented: Normal Eyes: Normal Ear: Normal Nose: Normal Throat: Normal Respiratory: Generalized, Diminished Cardiovascular: Tachycardia, Edema (BLE 1+ PITTING EDEMA ). negative: S3, S4, Murmur : Normal Auscultation: Bowel Sounds: Normal Palpation: Normal Tenderness: Diffuse, Mild. negative: Rebound, Guarding, Rigidity Skin: Normal Musculoskeletal: Right, Shoulder, Tender Psychiatric: Normal Mood Description: Calm Affect: Normal Speech Pattern: Clear, Appropriate - Laboratory and Diagnostics Result Diagrams: 11/04/18 04:43 11/04/18 17:43 Labs: 11/04/18 17:10 Sputum - Expectorated Sputum - Final 11/03/18 12:04 Urine,Clean Catch Urine Culture - Preliminary Laboratory WBC 21.3 X10^3/uL (3.6-10.0) H 11/04/18 04:43 RBC 4.27 X10^6/uL (4.7-6.0) L 11/04/18 04:43 Hgb 9.6 g/dL (13.5-18.0) L 11/04/18 04:43 Hct 31.7 % (42.0-54.0) L 11/04/18 04:43 MCV 74.3 fL (80.0-100.0) L 11/04/18 04:43 MCH 22.4 pg (27.0-34.0) L 11/04/18 04:43 MCHC 30.2 g/dL (33.0-35.0) L 11/04/18 04:43 RDW 18.2 % (11.6-16.5) H 11/04/18 04:43 Plt Count 342 X10^3/uL (150.0-450.0) 11/04/18 04:43 Plt Count Comment Adequate (ADEQUATE) 11/04/18 04:43 MPV 8.2 fL (7.4-11.0) 11/04/18 04:43 Neut % (Auto) 88.6 % (42.0-75.0) H 11/04/18 04:43 Lymph % (Auto) 2.2 % (21.0-51.0) L 11/04/18 04:43 [place] % (Auto) 9.0 % (0.0-13.0) 11/04/18 04:43 Eos % (Auto) 0.0 % (0.9-2.9) L 11/04/18 04:43 Baso % (Auto) 0.2 % (0.2-1.0) 11/04/18 04:43 Neut # (Auto) 18.8 x10^3/uL (2.2-4.8) H 11/04/18 04:43 Lymph # (Auto) 0.5 X10^3/uL (1.3-2.9) L 11/04/18 04:43 [place] # (Auto) 1.9 x10^3/uL (0.3-0.8) H 11/04/18 04:43 Eos # (Auto) 0.0 x10^3/uL (0.0-0.2) 11/04/18 04:43 Baso # (Auto) 0.0 X10^3/uL (0.0-0.1) 11/04/18 04:43 Absolute Nucleated RBC 0.0 /100WBC 11/04/18 04:43 Total Counted 100 11/04/18 04:43 Neutrophils % (Manual) 92 % (39-76) H 11/04/18 04:43 Band Neutrophils % 1 % (0-10) 11/04/18 04:43 Lymphocytes % (Manual) 1 % (13-43) L 11/04/18 04:43 Monocytes % (Manual) 6 % (4-9) 11/04/18 04:43 Plt Morphology Comment Normal (NORMAL) 11/04/18 04:43 RBC Morphology Abnormal (NORMAL) 11/04/18 04:43 Hypochromasia 1+ A 11/04/18 04:43 Macrocytosis Slight A 11/03/18 04:57 INR Target Range - 11/02/18 06:36 INR 1.37 (0.8-1.3) H 11/02/18 06:36 APTT 31.7 SECONDS (22.9-36.5) 11/02/18 06:36 PTT Comment - 11/02/18 06:36 D-Dimer 2370 ng/mL (0-400) H* 11/04/18 11:00 Sample Site Lbr 11/04/18 17:08 ABG pH 7.120 (7.35-7.45) L* 11/04/18 17:08 ABG pCO2 41.0 mmHg (35.0-45.0) 11/04/18 17:08 ABG pO2 58.0 mmHg (80.0-100.0) L 11/04/18 17:08 ABG HCO3 13.3 mmol/L (22-26) L* 11/04/18 17:08 ABG O2 Saturation 78.0 % (90-100) L* 11/04/18 17:08 ABG Base Excess -15.4 mmol/L (-2.0-2.0) L 11/04/18 17:08 [place] Test N/a 11/04/18 17:08 A-a Gradient 604.0 mmHg 11/04/18 17:08 FiO2 100.0 11/04/18 17:08 Blood Gas Comments Pt roland well elj 11/04/18 17:08 Sodium 129 mmol/L (136-145) L 11/04/18 04:43 Corrected Sodium 130 mmol/L (136-145) L 11/04/18 04:43 Potassium 5.2 mmol/L (3.5-5.1) H 11/04/18 04:43 Chloride 96 mmol/L (98-107) L 11/04/18 04:43 Carbon Dioxide 16.6 mmol/L (21-32) L 11/04/18 04:43 BUN 60 mg/dL (7-18) H 11/04/18 04:43 Creatinine 4.04 mg/dL (0.70-1.30) H 11/04/18 04:43 Est GFR (MDRD) Af Amer 19 (>60) L 11/04/18 04:43 Est GFR (MDRD) Non-Af 16 (>60) L 11/04/18 04:43 Glucose 88 mg/dL (65-99) 11/04/18 17:43 POC Glucose (mg/dL) 63 mg/dL (65-99) L 11/04/18 14:36 Lactic Acid 8.7 mmol/L (0.4-2.0) H 11/04/18 17:43 Calcium 8.6 mg/dL (8.5-10.1) 11/04/18 04:43 Corrected Calcium 10.3 mg/dL (8.5-10.1) H 11/04/18 04:43 Magnesium 2.0 mg/dL (1.7-2.9) 11/02/18 06:36 Total Bilirubin 3.20 mg/dL (0.2-1.0) H 11/04/18 04:43 AST 161 Units/L (15-37) H 11/04/18 04:43 ALT 47 Units/L (12-78) 11/04/18 04:43 Alkaline Phosphatase 122 Units/L (46-116) H 11/04/18 04:43 Ammonia 71 umol/L (11-32) H 11/04/18 04:43 Creatine Kinase 436 Units/L (39-308) H 11/04/18 17:43 CK-MB (CK-2) 3.7 ng/mL (0-4.0) 11/04/18 17:43 CK/CKMB % Calc 0.9 % (<4) 11/04/18 17:43 Troponin I 0.05 ng/mL (0-1.5) 11/04/18 17:43 B-Natriuretic Peptide 300 pg/mL (0-79) H 11/03/18 04:57 Total Protein 5.6 g/dL (6.4-8.2) L 11/04/18 04:43 Albumin 1.9 g/dL (3.4-5.0) L 11/04/18 04:43 Globulin 3.7 g/dL (2.5-4.5) 11/04/18 04:43 Albumin/Globulin Ratio 0.5 Ratio (1.1-2.1) L 11/04/18 04:43 Specimen Type Catherized urine 11/02/18 20:20 Urine Color Yellow (YELLOW) 11/02/18 20:20 Urine Appearance Clear (CLEAR) 11/02/18 20:20 Urine pH 5.0 (5.0 - 8.0) 11/02/18 20:20 Ur Specific [place] 1.025 (1.000-1.030) 11/02/18 20:20 Urine Protein 1+ (NEGATIVE) 11/02/18 20:20 Urine Glucose (UA) Negative (NEGATIVE) 11/02/18 20:20 Urine Ketones Negative (NEGATIVE) 11/02/18 20:20 Urine Occult Blood Negative (NEGATIVE) 11/02/18 20:20 Urine Nitrite Negative (NEGATIVE) 11/02/18 20:20 Urine Bilirubin Negative (NEGATIVE) 11/02/18 20:20 Urine Urobilinogen Normal (NORMAL) 11/02/18 20:20 Ur Leukocyte Esterase 1+ (NEGATIVE) 11/02/18 20:20 Urine RBC 0-2 /HPF (NONE SEEN) 11/02/18 20:20 Urine WBC 0-2 /HPF (NONE SEEN) 11/02/18 20:20 Ur Squamous Epith Cells Rare /HPF (NEGATIVE) 11/02/18 20:20 Amorphous Sediment 1+ /HPF (NEGATIVE) 11/02/18 20:20 Urine Bacteria Trace /HPF (NEGATIVE) 11/02/18 20:20 Hyaline Casts Few /LPF (NEGATIVE) 11/02/18 20:20 Urine Mucus Moderate /HPF (NEGATIVE) 11/02/18 13:10 Ur Culture Indicated? No/not indicated 11/02/18 20:20 Influenza Type A (PCR) Negative (NEGATIVE) 11/03/18 12:04 Influenza Type B (PCR) Negative (NEGATIVE) 11/03/18 12:04 S. pyogenes (TEM-PCR) Not detected (NOT DETECT) 11/03/18 12:04 - Plan (1) CHF (congestive heart failure) Status: Acute Qualifiers: Heart failure chronicity: acute on chronic Plan: BIPAP, LASIX 20MG IV BID, CONTINUE TO MONITOR (2) Leukocytosis Status: Acute Qualifiers: Leukocytosis type: unspecified Qualified Code(s): D72.829 - Elevated white blood cell count, unspecified Plan: OBTAIN URINE CULTURE, BLOOD CULTURE, SPUTUM CULTURE, STREP SWAB, INFLUENZA SWAB, CONTINUE TO MONITOR (3) Cirrhosis of liver Status: Acute Qualifiers: Hepatic cirrhosis type: unspecified hepatic cirrhosis Ascites presence: unspecified Qualified Code(s): K74.60 - Unspecified cirrhosis of liver Plan: OBTAIN ABDOMEN US TODAY, AMMONIA LEVEL, CONTINUE TO MONITOR (4) Contusion of right shoulder Status: Acute Qualifiers: Encounter type: initial encounter Qualified Code(s): S40.011A - Contusion of right shoulder, initial encounter Plan: MORPHINE AUTOMOBILE SERVICE WRITER, CONTINUE TO MONITOR (5) Renal failure Status: Chronic Qualifiers: Renal failure chronicity: acute on chronic Acute renal failure type: unspecified Chronic kidney disease stage: unspecified stage Qualified Code(s): N17.9 - Acute kidney failure, unspecified; N18.9 - Chronic kidney disease, unspecified
--- NOTE | 2018-11-04 19:26 | RAD ---
HISTORY: Central line assessment. Study: Chest one view Comparison: November 04, 2018 at 4:29 p.m. Findings: The trachea is midline. There is an endotracheal tube in place, the tip of which projects approximately 4.7 cm above the eivn. There is a left subclavian central venous catheter in place, the tip of which projects over the SVC, approximately 2 cm above the cavoatrial junction. No pneumothorax is identified. The cardiac silhouette is unchanged. Bilateral airspace opacities are again noted. The bony thorax is unremarkable. IMPRESSION: 1. New left-sided subclavian central line in place, the tip of which projects over the SVC approximately 2 cm above the cavoatrial junction. Reported By:
[2018-11-05 00:50] VITALS: BP 41/20
[2018-11-05] MEDS ORDERED: FORTAZ or TAZICEF VIAL INJ IVP SCH (09:00)
[2018-11-05] MEDS ORDERED: LEVAQUIN PREMIX IV 250 MG 250 MG/50 ML BAG IV SCH (21:00)
== END 2018-11-04 23:05 | disposition expired | DRG 291 ==
LOC: ICU 06:02 → ER 06:02 → MED/SURG 08:21 → ICU 11-04 12:20
PROVIDERS: ADMIT Internal Medicine; ATTEND Internal Medicine
DX: J96.00 Acute respiratory failure, unspecified whether with hypoxia or hypercapnia; Z66 Do not resuscitate; Z78.1 Physical restraint status; R18.8 Other ascites; E88.09 Other disorders of plasma-protein metabolism, not elsewhere classified; M25.511 Pain in right shoulder; N17.8 Other acute kidney failure; I48.91 Unspecified atrial fibrillation; Y92.89 Other specified places as the place of occurrence of the external cause; D72.828 Other elevated white blood cell count; K74.69 Other cirrhosis of liver; W10.8XXA Fall (on) (from) other stairs and steps, initial encounter; N18.9 Chronic kidney disease, unspecified; R26.89 Other abnormalities of gait and mobility; E87.1 Hypo-osmolality and hyponatremia; G30.8 Other Alzheimer's disease; I50.9 Heart failure, unspecified; G20 Parkinson's disease; M54.5 Low back pain; S40.011A Contusion of right shoulder, initial encounter
CPT/HCPCS: 31500; 36415; 36556; 36600; 71010; 71045; 73030; 76700; 80053; 81001; 82140; 82550; 82553; 82803; 82947; 83605; 83735; 83880; 84484; 85025; 85378; 85610; 85730; 87040; 87070; 87086; 87205; 87502; 87651; 93005; 93306; 94002; 94640; 94660; 94760; 96365; 96367; 96374; 96375; 97163; 97167; 99284; A4216; A4222; A4618; A7030; P9047; G0378; J0713; J1815; J1940; J1956; J2270; J2271; J2405; J2704; J3490; J7030; J7060; J7620